=== PATIENT | male | born 1960 | race Caucasian/White ===

== ENCOUNTER 2017-03-28 13:01 | Outpatient (CLI) | payer OTHER ==
[2017-03-28 13:23] VITALS: BP 110/62; PULSE 56; RESP 17; TEMP 99
[2017-03-28] MEDS ORDERED: NS 100 ML BAG (MINI-BAG) IV ONE (14:20)
== END 2017-03-28 15:07 | disposition home or self-care (01) ==
LOC: FOBOP 13:01
PROVIDERS: ATTEND Internal Medicine Hematology & Oncology
PROC: [UNRECOGNIZED PROCEDURE] (principal; 2017-03-28)
DX: C91.10 Chronic lymphocytic leukemia of B-cell type not having achieved remission (principal)
CPT/HCPCS: 36430; P9035

== ENCOUNTER 2017-03-30 11:19 | Outpatient (CLI) | payer OTHER ==
[2017-03-30] MEDS ORDERED: ACETAMINOPHEN 500 MG TAB ONE (13:09)
[2017-03-30] MEDS ORDERED: ACETAMINOPHEN 500 MG TAB PO ONE (14:00)
--- NOTE | 2017-03-30 15:24 | GCON ---
[f rep st] CONSULTATION OBSERVATION NOTE REASON FOR CONSULTATION: I was asked by the nurse to evaluate the patient because he had a fever up to 101 during a transfusion. 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 When I examine him, he really does not have any significant symptoms. No rigors, chills. His mentation is normal. His temp is back down to normal. 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 REVIEW OF SYSTEMS: No localizing symptoms. PHYSICAL EXAM: GENERAL: The clinical exam is unremarkable. He looks healthy. He is alert, orient ed, and completely intact. NECK: There is no cervical adenopathy. LUNGS: Clear to P and A. CV: S1 normal, S2 normally split. No S3, S4, or murmur. ABDOMEN: The patient has a soft, nontender ab domen. EXTREMITIES: There is no extremity edema. There is no perianal tenderness. LABORATORY DATA: Reveals that the patient has a white count of 104,000, hemoglobin 7, and the plate let count was 9000. CLINICAL IMPRESSION: A low-grade temperature, which is resolved. I think we can go ahead and just continue to transfuse and monitor his temperature. He has a followup on Sunday for another CBC and follow up thereafter with Dr. Carmen Gomez. /[id number]/MODL
== END 2017-03-30 15:02 | disposition home or self-care (01) ==
LOC: FOBOP 11:19
PROVIDERS: ATTEND Internal Medicine Hematology & Oncology
PROC: 30233N1 Transfusion of Nonautologous Red Blood Cells into Peripheral Vein, Percutaneous Approach (ICD-10-PCS; principal; 2017-03-30)
PROC: 30233R1 Transfusion of Nonautologous Platelets into Peripheral Vein, Percutaneous Approach (ICD-10-PCS; principal; 2017-03-30)
DX: C91.10 Chronic lymphocytic leukemia of B-cell type not having achieved remission (principal)
CPT/HCPCS: 36430; P9016; P9040; Q9988

== ENCOUNTER 2017-04-03 14:03 | Outpatient (CLI) | payer OTHER ==
[2017-04-01 11:08] LABS: BCH VENIPUNCTURE CHGD
[2017-04-01 11:11] LABS: ADD DIFF? YES; ADD MORPH? NO; ADD SCAN? YES; ATYPICAL LYMPHOCYTE FLAG 60 (0-99); FRAGMENT RBC FLAG 0 (0-99); HEMATOCRIT 23.5 % (40.0-51.0); HEMOGLOBIN 7.6 g/dL (13.7-17.5); LEFT SHIFT FLG 80 (0-99); LIPEMIA HEMOLYSIS FLAG 80 (0-99); MEAN CELL HEMOGLOBIN 32.1 pg (27.9-34.1); MEAN CELL HEMOGLOBIN CONCENTR. 32.3 g/dL (32.4-36.7); MEAN CELL VOLUME 99.2 fL (81.5-99.8); MEAN PLATELET VOLUME 10.5 fL (8.7-11.7); PLATELET CLUMPS FLAG 60 (0-99); RED BLOOD CELL COUNT 2.37 10^6/uL (4.40-6.38); RED CELL DISTRIBUTION WIDTH 15.7 % (11.5-15.2)
[2017-04-01 11:14] LABS: PLATELET COUNT 10 10^3/uL (150-400)
[2017-04-01 11:24] LABS: ALANINE AMINOTRANSFERASE 73 IU/L (21-72); ALBUMIN 4.5 g/dL (3.5-5.0); ALKALINE PHOSPHATASE 136 IU/L (38-126); ANION GAP 19 mEq/L (8-16); ASPARTATE AMINOTRANSFERASE 79 IU/L (17-59); BILIRUBIN,TOTAL 0.9 mg/dL (0.1-1.4); CALCIUM 10.2 mg/dL (8.5-10.4); CARBON DIOXIDE 20 mEq/l (22-31); CHLORIDE 102 mEq/L (97-110); CREATININE 1.1 mg/dL (0.7-1.3); GLOMERULAR FILTRATION RATE > 60; GLUCOSE 89 mg/dL (70-100); POTASSIUM 3.9 mEq/L (3.5-5.2); SODIUM 141 mEq/L (134-144); TOTAL PROTEIN 7.4 g/dL (6.3-8.2)
[2017-04-01 11:52] LABS: HYPOCHROMIA 1+; PLATELET ESTIMATE DECREASED (ADEQ)
[2017-04-01 12:06] LABS: EXTRA TUBES TO HOLD EXTRA TUBES ON FILE
[2017-04-03] MEDS ORDERED: ACETAMINOPHEN 325 MG TAB PO ONE (14:45)
[2017-04-03 18:10] VITALS: BP 110/70; PULSE 72; RESP 18; TEMP 99.4
== END 2017-04-03 18:00 | disposition home or self-care (01) ==
LOC: FOBOP 14:03
PROVIDERS: ATTEND Internal Medicine Hematology & Oncology
PROC: 30243R1 Transfusion of Nonautologous Platelets into Central Vein, Percutaneous Approach (ICD-10-PCS; principal; 2017-04-03)
PROC: 30243N1 Transfusion of Nonautologous Red Blood Cells into Central Vein, Percutaneous Approach (ICD-10-PCS; principal; 2017-04-03)
DX: C91.10 Chronic lymphocytic leukemia of B-cell type not having achieved remission (principal)
CPT/HCPCS: P9016; P9037; P9040; 99001-90

== ENCOUNTER → 2017-04-06 | Outpatient (CLI) | payer OTHER ==
[~2017-04-06] MED LIST: ACETAMINOPHEN 325 MG TAB PO ONE
== END ==
LOC: FOBOP 16:08
PROVIDERS: ATTEND Internal Medicine Hematology & Oncology
PROC: 30233R1 Transfusion of Nonautologous Platelets into Peripheral Vein, Percutaneous Approach (ICD-10-PCS; principal; 2017-04-06)
DX: C91.10 Chronic lymphocytic leukemia of B-cell type not having achieved remission (principal)
CPT/HCPCS: 36430; Q9988

== ENCOUNTER → 2017-04-11 | Outpatient (CLI) | payer OTHER ==
[~2017-04-11] MED LIST changes: +diphenhydrAMINE 25 MG CAP PO ONE
[2017-04-11 12:06] LABS: ABSOLUTE IMMATURE GRANULOCYTES 0.05 10^3/uL (0.00-0.10); ABSOLUTE NRBC COUNT 0.02 10^3/uL (0-0.01); ADD DIFF? NO; ATYPICAL LYMPHOCYTE FLAG 70 (0-99); FRAGMENT RBC FLAG 0 (0-99); HEMATOCRIT 19.2 % (40.0-51.0); LEFT SHIFT FLG 0 (0-99); LIPEMIA HEMOLYSIS FLAG 80 (0-99); MEAN CELL HEMOGLOBIN 32.5 pg (27.9-34.1); MEAN CELL HEMOGLOBIN CONCENTR. 32.8 g/dL (32.4-36.7); MEAN PLATELET VOLUME 9.8 fL (8.7-11.7); PLATELET CLUMPS FLAG 70 (0-99); RED BLOOD CELL COUNT 1.94 10^6/uL (4.40-6.38); RED CELL DISTRIBUTION WIDTH 15.4 % (11.5-15.2)
[2017-04-11 12:09] LABS: HEMOGLOBIN 6.3 g/dL (13.7-17.5); PLATELET COUNT 19 10^3/uL (150-400)
[2017-04-11 12:10] LABS: ADD MORPH? NO; ADD SCAN? NO
== END ==
LOC: FOBOP 08:49
PROVIDERS: ATTEND Internal Medicine Hematology & Oncology
PROC: 30233R1 Transfusion of Nonautologous Platelets into Peripheral Vein, Percutaneous Approach (ICD-10-PCS; principal; 2017-04-11)
DX: C91.10 Chronic lymphocytic leukemia of B-cell type not having achieved remission (principal)

== ENCOUNTER 2017-04-12 11:19 | Outpatient (CLI) | payer OTHER ==
[2017-04-12] MEDS ORDERED: ACETAMINOPHEN 325 MG TAB PO ONE (11:45)
== END 2017-04-12 16:20 | disposition home or self-care (01) ==
LOC: F1NOP 11:19
PROVIDERS: ATTEND Internal Medicine Hematology & Oncology
PROC: 30233N1 Transfusion of Nonautologous Red Blood Cells into Peripheral Vein, Percutaneous Approach (ICD-10-PCS; principal; 2017-04-12)
DX: C91.10 Chronic lymphocytic leukemia of B-cell type not having achieved remission (principal)
CPT/HCPCS: 36430; P9040

== ENCOUNTER 2017-04-18 10:50 | Outpatient (CLI) | payer OTHER ==
[2017-04-18] MEDS ORDERED: ACETAMINOPHEN 325 MG TAB PO ONE (11:15)
[2017-04-18 17:37] LABS: ABSOLUTE IMMATURE GRANULOCYTES 0.04 10^3/uL (0.00-0.10); ADD DIFF? NO; ATYPICAL LYMPHOCYTE FLAG 30 (0-99); FRAGMENT RBC FLAG 0 (0-99); HEMATOCRIT 22.6 % (40.0-51.0); LEFT SHIFT FLG 10 (0-99); LIPEMIA HEMOLYSIS FLAG 70 (0-99); MEAN CELL HEMOGLOBIN 30.7 pg (27.9-34.1); MEAN CELL HEMOGLOBIN CONCENTR. 29.6 g/dL (32.4-36.7); MEAN CELL VOLUME 103.7 fL (81.5-99.8); RED BLOOD CELL COUNT 2.18 10^6/uL (4.40-6.38); RED CELL DISTRIBUTION WIDTH 15.7 % (11.5-15.2)
[2017-04-18 17:42] LABS: HEMOGLOBIN 6.7 g/dL (13.7-17.5); PLATELET CLUMPS FLAG 120 (0-99); PLATELET COUNT 26 10^3/uL (150-400)
[2017-04-18 17:43] LABS: ADD MORPH? NO; ADD SCAN? NO
== END 2017-04-18 17:15 | disposition home or self-care (01) ==
LOC: FOBOP 10:50
PROVIDERS: ATTEND Internal Medicine Hematology & Oncology
PROC: 30233R1 Transfusion of Nonautologous Platelets into Peripheral Vein, Percutaneous Approach (ICD-10-PCS; principal; 2017-04-18)
PROC: 30233N1 Transfusion of Nonautologous Red Blood Cells into Peripheral Vein, Percutaneous Approach (ICD-10-PCS; principal; 2017-04-18)
DX: C91.10 Chronic lymphocytic leukemia of B-cell type not having achieved remission (principal)
CPT/HCPCS: 36430; P9016; P9040; Q9988

== ENCOUNTER → 2017-04-18 | Day surgery (SDC) | payer OTHER | END | disposition home or self-care (01) | LOC: FIMAGING 09:30 | PROVIDERS: ATTEND Nurse Practitioner | PROC: 02HV33Z Insertion of Infusion Device into Superior Vena Cava, Percutaneous Approach (ICD-10-PCS; principal; 2017-04-18) | DX: Z45.2 Encounter for adjustment and management of vascular access device (principal); C91.10 Chronic lymphocytic leukemia of B-cell type not having achieved remission | CPT/HCPCS: 36569; 77001; C1751 ==

== ENCOUNTER 2017-04-20 12:24 | Outpatient (CLI) | payer OTHER ==
[2017-04-20] MEDS ORDERED: diphenhydrAMINE 25 MG CAP PO ONE (12:45)
[2017-04-20] MEDS ORDERED: ACETAMINOPHEN 325 MG TAB PO ONE (12:45)
[2017-04-20 17:42] LABS: ABSOLUTE IMMATURE GRANULOCYTES 0.05 10^3/uL (0.00-0.10); ADD DIFF? NO; ADD MORPH? NO; ADD SCAN? YES; ATYPICAL LYMPHOCYTE FLAG 20 (0-99); FRAGMENT RBC FLAG 0 (0-99); HEMATOCRIT 23.9 % (40.0-51.0); HEMOGLOBIN 7.1 g/dL (13.7-17.5); LEFT SHIFT FLG 50 (0-99); LIPEMIA HEMOLYSIS FLAG 70 (0-99); MEAN CELL HEMOGLOBIN 30.2 pg (27.9-34.1); MEAN CELL HEMOGLOBIN CONCENTR. 29.7 g/dL (32.4-36.7); MEAN CELL VOLUME 101.7 fL (81.5-99.8); MEAN PLATELET VOLUME 10.7 fL (8.7-11.7); PLATELET CLUMPS FLAG 60 (0-99); RED BLOOD CELL COUNT 2.35 10^6/uL (4.40-6.38); RED CELL DISTRIBUTION WIDTH 17.4 % (11.5-15.2)
[2017-04-20 17:44] LABS: PLATELET COUNT 24 10^3/uL (150-400)
[2017-04-20 19:27] LABS: SCAN POSITIVE
[2017-04-20 19:33] LABS: PLATELET ESTIMATE DECREASED (ADEQ)
== END 2017-04-20 17:27 | disposition home health service (06) ==
LOC: F1NOP 12:24
PROVIDERS: ATTEND Internal Medicine Hematology & Oncology
PROC: 30233R1 Transfusion of Nonautologous Platelets into Peripheral Vein, Percutaneous Approach (ICD-10-PCS; principal; 2017-04-20)
PROC: 30233N1 Transfusion of Nonautologous Red Blood Cells into Peripheral Vein, Percutaneous Approach (ICD-10-PCS; principal; 2017-04-20)
DX: C91.10 Chronic lymphocytic leukemia of B-cell type not having achieved remission (principal)
CPT/HCPCS: P9016; P9037; P9040; J1642

== ENCOUNTER 2017-04-23 13:30 | Outpatient (CLI) | payer OTHER ==
[2017-04-23] MEDS ORDERED: ACETAMINOPHEN 325 MG TAB PO ONE (14:00)
[2017-04-23] MEDS ORDERED: diphenhydrAMINE 25 MG CAP PO ONE (14:00)
[2017-04-23 14:04] VITALS: PULSE 55; RESP 16; O2SAT 96
[2017-04-23 14:31] VITALS: BP 104/60; TEMP 99.7
== END 2017-04-23 15:10 | disposition home or self-care (01) ==
LOC: FOBOP 13:30
PROVIDERS: ATTEND Internal Medicine Hematology & Oncology
PROC: [UNRECOGNIZED PROCEDURE] (principal; 2017-04-23)
DX: C91.10 Chronic lymphocytic leukemia of B-cell type not having achieved remission (principal); D63.0 Anemia in neoplastic disease; D69.6 Thrombocytopenia, unspecified; D80.1 Nonfamilial hypogammaglobulinemia; E78.00 Pure hypercholesterolemia, unspecified; D70.9 Neutropenia, unspecified; J06.9 Acute upper respiratory infection, unspecified; G95.20 Unspecified cord compression
CPT/HCPCS: J1642

== ENCOUNTER 2017-04-27 11:47 | Outpatient (CLI) | payer OTHER ==
[2017-04-27] MEDS ORDERED: ACETAMINOPHEN 325 MG TAB PO ONE (12:15)
[2017-04-27 12:23] VITALS: BP 116/66; PULSE 62; RESP 16; TEMP 99.7; O2SAT 97
== END 2017-04-27 17:31 | disposition home or self-care (01) ==
LOC: FOBOP 11:47
PROVIDERS: ATTEND Internal Medicine Hematology & Oncology
PROC: 30233R1 Transfusion of Nonautologous Platelets into Peripheral Vein, Percutaneous Approach (ICD-10-PCS; principal; 2017-04-27)
PROC: 30233N1 Transfusion of Nonautologous Red Blood Cells into Peripheral Vein, Percutaneous Approach (ICD-10-PCS; principal; 2017-04-27)
DX: D63.0 Anemia in neoplastic disease (principal); C91.10 Chronic lymphocytic leukemia of B-cell type not having achieved remission; D69.59 Other secondary thrombocytopenia
CPT/HCPCS: 36430; P9016; P9037; P9040; 99001-90; J1642

== ENCOUNTER → 2017-05-02 | Outpatient (CLI) | payer OTHER ==
[~2017-05-02] MED LIST changes: -diphenhydrAMINE 25 MG CAP PO ONE
== END ==
LOC: FOBOP 10:37
PROVIDERS: ATTEND Internal Medicine Hematology & Oncology
PROC: 30233R1 Transfusion of Nonautologous Platelets into Peripheral Vein, Percutaneous Approach (ICD-10-PCS; principal; 2017-05-02)
DX: C91.10 Chronic lymphocytic leukemia of B-cell type not having achieved remission (principal)
CPT/HCPCS: 36430; P9016; P9037; P9040; 99001-90

== ENCOUNTER → 2017-05-04 | Outpatient (CLI) | payer OTHER ==
[~2017-05-04] MED LIST changes: +diphenhydrAMINE 25 MG CAP PO ONE
[2017-05-04 19:13] LABS: % IMMATURE GRANULYOCYTES 0.1 % (0.0-1.1); ABSOLUTE IMMATURE GRANULOCYTES 0.14 10^3/uL (0.00-0.10); ABSOLUTE NRBC COUNT 0.02 10^3/uL (0-0.01); ADD DIFF? NO; ADD MORPH? YES; ADD SCAN? YES; ATYPICAL LYMPHOCYTE FLAG 0 (0-99); FRAGMENT RBC FLAG 20 (0-99); HEMATOCRIT 22.3 % (40.0-51.0); LEFT SHIFT FLG 0 (0-99); LIPEMIA HEMOLYSIS FLAG 70 (0-99); MEAN CELL HEMOGLOBIN 28.3 pg (27.9-34.1); MEAN CELL HEMOGLOBIN CONCENTR. 29.1 g/dL (32.4-36.7); MEAN PLATELET VOLUME 10.9 fL (8.7-11.7); PLATELET CLUMPS FLAG 0 (0-99); RED CELL DISTRIBUTION WIDTH 17.9 % (11.5-15.2)
[2017-05-04 19:14] LABS: HEMOGLOBIN 6.5 g/dL (13.7-17.5)
[2017-05-04 19:16] LABS: PLATELET COUNT 25 10^3/uL (150-400)
[2017-05-04 20:02] LABS: SCAN POSITIVE
[2017-05-04 20:44] LABS: HYPOCHROMIA 2+; MICROCYTES 1+; PLATELET ESTIMATE DECREASED (ADEQ)
== END ==
LOC: FOBOP 16:28
PROVIDERS: ATTEND Internal Medicine Hematology & Oncology
PROC: 30233R1 Transfusion of Nonautologous Platelets into Peripheral Vein, Percutaneous Approach (ICD-10-PCS; principal; 2017-05-04)
PROC: 30233N1 Transfusion of Nonautologous Red Blood Cells into Peripheral Vein, Percutaneous Approach (ICD-10-PCS; principal; 2017-05-04)
DX: C91.10 Chronic lymphocytic leukemia of B-cell type not having achieved remission (principal); D63.0 Anemia in neoplastic disease; D64.81 Anemia due to antineoplastic chemotherapy; D80.1 Nonfamilial hypogammaglobulinemia; D69.6 Thrombocytopenia, unspecified
CPT/HCPCS: 36430; P9016; P9040; Q9988

== ENCOUNTER 2017-05-07 11:38 | Outpatient (CLI) | payer OTHER ==
[2017-05-07] MEDS ORDERED: ACETAMINOPHEN 325 MG TAB ONE (12:13)
[2017-05-07] MEDS ORDERED: ACETAMINOPHEN 325 MG TAB PO ONE (12:30)
[2017-05-07] MEDS ORDERED: diphenhydrAMINE 25 MG CAP PO ONE (12:30)
== END 2017-05-07 18:40 | disposition home or self-care (01) ==
LOC: FOBOP 11:38
PROVIDERS: ATTEND Internal Medicine Hematology & Oncology
PROC: 30233R1 Transfusion of Nonautologous Platelets into Peripheral Vein, Percutaneous Approach (ICD-10-PCS; principal; 2017-05-07)
DX: C91.10 Chronic lymphocytic leukemia of B-cell type not having achieved remission (principal)
CPT/HCPCS: 36430; Q9988

== ENCOUNTER → 2017-05-11 | Outpatient (CLI) | payer OTHER ==
[2017-05-11 15:28] LABS: % IMMATURE GRANULYOCYTES 0.1 % (0.0-1.1); ABSOLUTE IMMATURE GRANULOCYTES 0.12 10^3/uL (0.00-0.10); ADD DIFF? NO; ADD MORPH? YES; ADD SCAN? YES; ATYPICAL LYMPHOCYTE FLAG 0 (0-99); FRAGMENT RBC FLAG 0 (0-99); HEMATOCRIT 22.8 % (40.0-51.0); LEFT SHIFT FLG 0 (0-99); LIPEMIA HEMOLYSIS FLAG 70 (0-99); MEAN CELL HEMOGLOBIN 28.3 pg (27.9-34.1); MEAN CELL VOLUME 99.1 fL (81.5-99.8); MEAN PLATELET VOLUME 10.6 fL (8.7-11.7); PLATELET CLUMPS FLAG 0 (0-99); RED CELL DISTRIBUTION WIDTH 17.2 % (11.5-15.2)
[2017-05-11 15:29] LABS: HEMOGLOBIN 6.5 g/dL (13.7-17.5); MEAN CELL HEMOGLOBIN CONCENTR. 28.5 g/dL (32.4-36.7); PLATELET COUNT 34 10^3/uL (150-400)
[2017-05-11 16:26] LABS: SCAN POSITIVE
[2017-05-11 16:54] LABS: HYPOCHROMIA 1+; MICROCYTES 2+; PLATELET ESTIMATE DECREASED (ADEQ); SCHISTOCYTES 1+; SMUDGE CELLS 3+
[2017-05-11 16:55] LABS: ELLIPTOCYTES 1+
== END ==
LOC: FOBOP 13:25
PROVIDERS: ATTEND Internal Medicine Hematology & Oncology
PROC: 30233R1 Transfusion of Nonautologous Platelets into Peripheral Vein, Percutaneous Approach (ICD-10-PCS; principal; 2017-05-11)
DX: C91.10 Chronic lymphocytic leukemia of B-cell type not having achieved remission (principal)
CPT/HCPCS: 36430; P9037

== ENCOUNTER 2017-05-16 13:13 | Outpatient (CLI) | payer OTHER | END 2017-05-16 14:10 | disposition home or self-care (01) | LOC: FOBOP 13:13 | PROVIDERS: ATTEND Internal Medicine Hematology & Oncology | PROC: 30233R1 Transfusion of Nonautologous Platelets into Peripheral Vein, Percutaneous Approach (ICD-10-PCS; principal; 2017-05-16) | DX: C91.10 Chronic lymphocytic leukemia of B-cell type not having achieved remission (principal); D69.6 Thrombocytopenia, unspecified; D80.1 Nonfamilial hypogammaglobulinemia; D63.0 Anemia in neoplastic disease; D64.81 Anemia due to antineoplastic chemotherapy; E78.00 Pure hypercholesterolemia, unspecified; D70.9 Neutropenia, unspecified | CPT/HCPCS: 36430; P9037 ==

== ENCOUNTER 2017-05-18 10:21 | Outpatient (CLI) | payer OTHER ==
[2017-05-18 11:49] VITALS: BP 104/62; PULSE 58; RESP 16; TEMP 99.7
[2017-05-18] MEDS ORDERED: ACETAMINOPHEN 325 MG TAB PO ONE (12:30)
== END 2017-05-18 14:00 | disposition home or self-care (01) ==
LOC: FOBOP 10:21
PROVIDERS: ATTEND Internal Medicine Hematology & Oncology
PROC: 30233N1 Transfusion of Nonautologous Red Blood Cells into Peripheral Vein, Percutaneous Approach (ICD-10-PCS; principal; 2017-05-18)
DX: C91.10 Chronic lymphocytic leukemia of B-cell type not having achieved remission (principal); D63.0 Anemia in neoplastic disease; D69.6 Thrombocytopenia, unspecified; D80.1 Nonfamilial hypogammaglobulinemia; E78.00 Pure hypercholesterolemia, unspecified; D70.9 Neutropenia, unspecified
CPT/HCPCS: 36430; P9016; P9040

== ENCOUNTER 2017-05-21 16:31 | Outpatient (CLI) | payer OTHER | END 2017-05-21 18:10 | disposition home or self-care (01) | LOC: FOBOP 16:31 | PROVIDERS: ATTEND Internal Medicine Hematology & Oncology | PROC: 30233R1 Transfusion of Nonautologous Platelets into Peripheral Vein, Percutaneous Approach (ICD-10-PCS; principal; 2017-05-21) | DX: C91.10 Chronic lymphocytic leukemia of B-cell type not having achieved remission (principal); D63.0 Anemia in neoplastic disease; D69.6 Thrombocytopenia, unspecified; D80.1 Nonfamilial hypogammaglobulinemia; E78.00 Pure hypercholesterolemia, unspecified; D70.9 Neutropenia, unspecified ==

== ENCOUNTER 2017-05-24 09:41 | Outpatient (CLI) | payer OTHER | END 2017-05-24 14:47 | disposition home or self-care (01) | LOC: FOBOP 09:41 | PROVIDERS: ATTEND Internal Medicine Hematology & Oncology | PROC: 30233N1 Transfusion of Nonautologous Red Blood Cells into Peripheral Vein, Percutaneous Approach (ICD-10-PCS; principal; 2017-05-24) | DX: C91.10 Chronic lymphocytic leukemia of B-cell type not having achieved remission (principal); D63.0 Anemia in neoplastic disease; D69.6 Thrombocytopenia, unspecified; D80.1 Nonfamilial hypogammaglobulinemia; E78.00 Pure hypercholesterolemia, unspecified; D70.9 Neutropenia, unspecified | CPT/HCPCS: 36430; P9016; P9040 ==

== ENCOUNTER → 2017-05-28 | Day surgery (SDC) | payer OTHER | END | disposition home or self-care (01) | LOC: FIMAGING 13:17 | PROVIDERS: ATTEND Internal Medicine Hematology & Oncology | PROC: 05WY33Z Revision of Infusion Device in Upper Vein, Percutaneous Approach (ICD-10-PCS; principal; 2017-05-28) | DX: Z45.89 Encounter for adjustment and management of other implanted devices (principal); C95.90 Leukemia, unspecified not having achieved remission ==

== ENCOUNTER → 2017-05-31 | Outpatient (CLI) | payer OTHER ==
[~2017-05-31] MED LIST changes: -diphenhydrAMINE 25 MG CAP PO ONE
== END ==
LOC: FOBOP 14:53
PROVIDERS: ATTEND Internal Medicine Hematology & Oncology
PROC: 30233R1 Transfusion of Nonautologous Platelets into Peripheral Vein, Percutaneous Approach (ICD-10-PCS; principal; 2017-05-31)
DX: C91.10 Chronic lymphocytic leukemia of B-cell type not having achieved remission (principal); D64.81 Anemia due to antineoplastic chemotherapy; D69.6 Thrombocytopenia, unspecified; D80.1 Nonfamilial hypogammaglobulinemia; E78.00 Pure hypercholesterolemia, unspecified; D70.9 Neutropenia, unspecified
CPT/HCPCS: 36430; P9037

== ENCOUNTER → 2017-06-05 | Outpatient (CLI) | payer OTHER ==
[2017-06-05 09:36] VITALS: BP 120/68; PULSE 60; RESP 18; TEMP 98.1; O2SAT 96
== END ==
LOC: FOBOP 08:52
PROVIDERS: ATTEND Internal Medicine Hematology & Oncology
PROC: 30233N1 Transfusion of Nonautologous Red Blood Cells into Peripheral Vein, Percutaneous Approach (ICD-10-PCS; principal; 2017-06-05)
DX: C91.10 Chronic lymphocytic leukemia of B-cell type not having achieved remission (principal); D63.0 Anemia in neoplastic disease
CPT/HCPCS: 36430; P9016; P9037; P9040

== ENCOUNTER 2017-06-11 12:14 | Outpatient (CLI) | payer OTHER | END 2017-06-11 13:50 | disposition home or self-care (01) | LOC: FOBOP 12:14 | PROVIDERS: ATTEND Internal Medicine Hematology & Oncology | PROC: 30233R1 Transfusion of Nonautologous Platelets into Peripheral Vein, Percutaneous Approach (ICD-10-PCS; principal; 2017-06-11) | DX: C91.10 Chronic lymphocytic leukemia of B-cell type not having achieved remission (principal) | CPT/HCPCS: 36430; Q9988 ==

== ENCOUNTER 2017-06-18 11:38 | Outpatient (CLI) | payer OTHER ==
[2017-06-18 12:44] VITALS: RESP 20
[2017-06-18 16:39] VITALS: O2SAT 98
[2017-06-18 16:52] VITALS: PULSE 48
[2017-06-18 17:30] VITALS: BP 140/62; TEMP 98.9
== END 2017-06-18 17:30 | disposition home or self-care (01) ==
LOC: FOBOP 11:38
PROVIDERS: ATTEND Internal Medicine Hematology & Oncology
PROC: 30233N1 Transfusion of Nonautologous Red Blood Cells into Peripheral Vein, Percutaneous Approach (ICD-10-PCS; principal; 2017-06-18)
DX: D80.1 Nonfamilial hypogammaglobulinemia (principal); C91.10 Chronic lymphocytic leukemia of B-cell type not having achieved remission
CPT/HCPCS: 36430; P9016; P9037; P9040; 99001-90

== ENCOUNTER 2017-06-22 11:42 | Outpatient (CLI) | payer OTHER ==
[2017-06-22] MEDS ORDERED: ACETAMINOPHEN 325 MG TAB PO ONE (12:00)
== END 2017-06-22 13:18 | disposition home or self-care (01) ==
LOC: FOBOP 11:42
PROVIDERS: ATTEND Internal Medicine Hematology & Oncology
PROC: 30233R1 Transfusion of Nonautologous Platelets into Peripheral Vein, Percutaneous Approach (ICD-10-PCS; principal; 2017-06-22)
DX: C91.10 Chronic lymphocytic leukemia of B-cell type not having achieved remission (principal); D64.81 Anemia due to antineoplastic chemotherapy; D80.1 Nonfamilial hypogammaglobulinemia; D69.6 Thrombocytopenia, unspecified; E78.00 Pure hypercholesterolemia, unspecified; D70.9 Neutropenia, unspecified
CPT/HCPCS: 36430; P9037

== ENCOUNTER 2017-07-07 09:38 | Outpatient (CLI) | payer OTHER ==
[2017-07-07 10:20] VITALS: BP 120/64; PULSE 54; RESP 20; TEMP 99.5; O2SAT 97
== END 2017-07-07 14:10 | disposition home or self-care (01) ==
LOC: FOBOP 09:38
PROVIDERS: ATTEND Internal Medicine Hematology & Oncology
PROC: 30233N0 Transfusion of Autologous Red Blood Cells into Peripheral Vein, Percutaneous Approach (ICD-10-PCS; principal; 2017-07-07)
DX: C91.10 Chronic lymphocytic leukemia of B-cell type not having achieved remission (principal); D80.1 Nonfamilial hypogammaglobulinemia; D63.0 Anemia in neoplastic disease; D69.6 Thrombocytopenia, unspecified; E78.00 Pure hypercholesterolemia, unspecified; D70.9 Neutropenia, unspecified
CPT/HCPCS: 36430; P9016; P9040

== ENCOUNTER 2017-07-21 11:30 | Outpatient (CLI) | payer OTHER ==
[2017-07-21 11:46] VITALS: BP 102/52; PULSE 66; RESP 16; TEMP 98.7; O2SAT 96
== END 2017-07-21 13:55 | disposition home or self-care (01) ==
LOC: FOBOP 11:30
PROVIDERS: ATTEND Internal Medicine Hematology & Oncology
PROC: 30233R1 Transfusion of Nonautologous Platelets into Peripheral Vein, Percutaneous Approach (ICD-10-PCS; principal; 2017-07-21)
DX: C91.10 Chronic lymphocytic leukemia of B-cell type not having achieved remission (principal)
CPT/HCPCS: 36430; P9037

== ENCOUNTER 2017-07-25 20:37 | Outpatient (CLI) | payer OTHER ==
[2017-07-25 21:22] VITALS: BP 126/60; PULSE 72; RESP 18; TEMP 98.8
== END 2017-07-25 23:05 | disposition home or self-care (01) ==
LOC: FOBOP 20:37
PROVIDERS: ATTEND Internal Medicine Hematology & Oncology
PROC: 30233R1 Transfusion of Nonautologous Platelets into Peripheral Vein, Percutaneous Approach (ICD-10-PCS; principal; 2017-07-25)
DX: C91.10 Chronic lymphocytic leukemia of B-cell type not having achieved remission (principal); D70.2 Other drug-induced agranulocytosis; D64.81 Anemia due to antineoplastic chemotherapy; D80.1 Nonfamilial hypogammaglobulinemia
CPT/HCPCS: 36430; P9037

== ENCOUNTER → 2017-07-26 | Outpatient (CLI) | payer OTHER | LOC: FOBOP 11:38 | PROVIDERS: ATTEND Internal Medicine Hematology & Oncology | PROC: 30233N1 Transfusion of Nonautologous Red Blood Cells into Peripheral Vein, Percutaneous Approach (ICD-10-PCS; principal; 2017-07-26) | DX: C91.Z0 Other lymphoid leukemia not having achieved remission (principal); D64.81 Anemia due to antineoplastic chemotherapy | CPT/HCPCS: 36430; P9016; P9040 ==

== ENCOUNTER 2017-07-28 08:02 | Outpatient (CLI) | payer OTHER ==
[2017-07-28 09:54] LABS: PLATELET COUNT 13 10^3/uL (150-400)
== END 2017-07-28 09:44 | disposition home or self-care (01) ==
LOC: FOBOP 08:02
PROVIDERS: ATTEND Internal Medicine Hematology & Oncology
PROC: 30233R1 Transfusion of Nonautologous Platelets into Peripheral Vein, Percutaneous Approach (ICD-10-PCS; principal; 2017-07-28)
DX: C91.10 Chronic lymphocytic leukemia of B-cell type not having achieved remission (principal); D64.81 Anemia due to antineoplastic chemotherapy; D70.9 Neutropenia, unspecified; D69.6 Thrombocytopenia, unspecified; D80.1 Nonfamilial hypogammaglobulinemia; E78.00 Pure hypercholesterolemia, unspecified
CPT/HCPCS: 36430; P9037; 99001-90

== ENCOUNTER 2017-07-31 15:18 | Outpatient (CLI) | payer OTHER ==
[2017-07-31] MEDS ORDERED: ACETAMINOPHEN 325 MG TAB PO ONE (16:00)
== END 2017-07-31 17:16 | disposition home or self-care (01) ==
LOC: F1NOP 15:18
PROVIDERS: ATTEND Internal Medicine Hematology & Oncology
PROC: 30233R1 Transfusion of Nonautologous Platelets into Peripheral Vein, Percutaneous Approach (ICD-10-PCS; principal; 2017-07-31)
DX: C91.10 Chronic lymphocytic leukemia of B-cell type not having achieved remission (principal)
CPT/HCPCS: P9073

== ENCOUNTER → 2017-08-03 | Outpatient (CLI) | payer OTHER | LOC: FOBOP 15:55 | PROVIDERS: ATTEND Internal Medicine Hematology & Oncology | PROC: 30233R1 Transfusion of Nonautologous Platelets into Peripheral Vein, Percutaneous Approach (ICD-10-PCS; principal; 2017-08-03) | DX: C91.90 Lymphoid leukemia, unspecified not having achieved remission (principal) | CPT/HCPCS: 36430; P9037 ==

== ENCOUNTER → 2017-08-06 | Outpatient (CLI) | payer OTHER | LOC: FOBOP 12:31 | PROVIDERS: ATTEND Internal Medicine Hematology & Oncology | PROC: 30233N1 Transfusion of Nonautologous Red Blood Cells into Peripheral Vein, Percutaneous Approach (ICD-10-PCS; principal; 2017-08-06) | PROC: 30233R1 Transfusion of Nonautologous Platelets into Peripheral Vein, Percutaneous Approach (ICD-10-PCS; principal; 2017-08-06) | DX: C91.90 Lymphoid leukemia, unspecified not having achieved remission (principal); D69.6 Thrombocytopenia, unspecified | CPT/HCPCS: 36430; P9016; P9040; P9073 ==

== ENCOUNTER → 2017-08-10 | Outpatient (CLI) | payer OTHER ==
[2017-08-10 18:27] LABS: PLATELET COUNT 15 10^3/uL (150-400)
== END ==
LOC: FOBOP 13:38
PROVIDERS: ATTEND Internal Medicine Hematology & Oncology
PROC: 30233N1 Transfusion of Nonautologous Red Blood Cells into Peripheral Vein, Percutaneous Approach (ICD-10-PCS; principal; 2017-08-10)
DX: C91.10 Chronic lymphocytic leukemia of B-cell type not having achieved remission (principal); D69.6 Thrombocytopenia, unspecified; D70.9 Neutropenia, unspecified; D64.81 Anemia due to antineoplastic chemotherapy; E78.00 Pure hypercholesterolemia, unspecified
CPT/HCPCS: 36430; P9016; P9040; P9073

== ENCOUNTER 2017-08-15 14:44 | Outpatient (CLI) | payer OTHER ==
[2017-08-15 21:05] LABS: PLATELET COUNT 15 10^3/uL (150-400)
== END 2017-08-15 20:30 | disposition home or self-care (01) ==
LOC: FOBOP 14:44
PROVIDERS: ATTEND Internal Medicine Hematology & Oncology
PROC: 30233R1 Transfusion of Nonautologous Platelets into Peripheral Vein, Percutaneous Approach (ICD-10-PCS; principal; 2017-08-15)
DX: D64.81 Anemia due to antineoplastic chemotherapy (principal); C91.10 Chronic lymphocytic leukemia of B-cell type not having achieved remission; Z79.899 Other long term (current) drug therapy
CPT/HCPCS: 36430; P9016; P9037; P9040; 99001-90

== ENCOUNTER 2017-08-18 09:20 | Outpatient (CLI) | payer OTHER | END 2017-08-18 11:11 | disposition home or self-care (01) | LOC: FOBOP 09:20 | PROVIDERS: ATTEND Internal Medicine Hematology & Oncology | PROC: 30233R1 Transfusion of Nonautologous Platelets into Peripheral Vein, Percutaneous Approach (ICD-10-PCS; principal; 2017-08-18) | DX: C91.10 Chronic lymphocytic leukemia of B-cell type not having achieved remission (principal) | CPT/HCPCS: 36430; P9073 ==

== ENCOUNTER 2017-08-21 11:28 | Outpatient (CLI) | payer OTHER ==
[2017-08-21 17:22] LABS: PLATELET COUNT 19 10^3/uL (150-400)
== END 2017-08-21 17:10 | disposition home or self-care (01) ==
LOC: FOBOP 11:28
PROVIDERS: ATTEND Internal Medicine Hematology & Oncology
PROC: 30233R1 Transfusion of Nonautologous Platelets into Peripheral Vein, Percutaneous Approach (ICD-10-PCS; principal; 2017-08-21)
PROC: 30233N1 Transfusion of Nonautologous Red Blood Cells into Peripheral Vein, Percutaneous Approach (ICD-10-PCS; principal; 2017-08-21)
DX: C91.10 Chronic lymphocytic leukemia of B-cell type not having achieved remission (principal)
CPT/HCPCS: 36430; P9016; P9037; P9040

== ENCOUNTER → 2017-08-24 | Outpatient (CLI) | payer OTHER | LOC: FOBOP 11:23 | PROVIDERS: ATTEND Internal Medicine Hematology & Oncology | PROC: 30233N1 Transfusion of Nonautologous Red Blood Cells into Peripheral Vein, Percutaneous Approach (ICD-10-PCS; principal; 2017-08-24) | DX: C91.10 Chronic lymphocytic leukemia of B-cell type not having achieved remission (principal) | CPT/HCPCS: 36430; P9016; P9037; P9040; J1642 ==

== ENCOUNTER 2017-08-28 08:44 | Outpatient (CLI) | payer OTHER ==
[2017-08-28 09:13] VITALS: BP 100/40; PULSE 80; RESP 14; TEMP 99.1
== END 2017-08-28 14:05 | disposition home or self-care (01) ==
LOC: FOBOP 08:44
PROVIDERS: ATTEND Internal Medicine Hematology & Oncology
PROC: 30233N1 Transfusion of Nonautologous Red Blood Cells into Peripheral Vein, Percutaneous Approach (ICD-10-PCS; principal; 2017-08-28)
PROC: 30233R1 Transfusion of Nonautologous Platelets into Peripheral Vein, Percutaneous Approach (ICD-10-PCS; principal; 2017-08-28)
DX: C91.10 Chronic lymphocytic leukemia of B-cell type not having achieved remission (principal)
CPT/HCPCS: 36430; P9016; P9037; P9040

== ENCOUNTER 2017-08-30 12:47 | Outpatient (CLI) | payer OTHER | END 2017-08-30 14:15 | disposition home or self-care (01) | LOC: FOBOP 12:47 | PROVIDERS: ATTEND Internal Medicine Hematology & Oncology | PROC: 30233R1 Transfusion of Nonautologous Platelets into Peripheral Vein, Percutaneous Approach (ICD-10-PCS; principal; 2017-08-30) | DX: C91.10 Chronic lymphocytic leukemia of B-cell type not having achieved remission (principal) | CPT/HCPCS: 36430; P9037 ==

== ENCOUNTER 2017-09-01 09:21 | Outpatient (CLI) | payer OTHER ==
[2017-09-01 12:48] VITALS: PULSE 56
[2017-09-01 12:49] VITALS: BP 100/56; RESP 22; TEMP 99; O2SAT 98
== END 2017-09-01 11:35 | disposition home or self-care (01) ==
LOC: FOBOP 09:21
PROVIDERS: ATTEND Internal Medicine Hematology & Oncology
PROC: 30233R1 Transfusion of Nonautologous Platelets into Peripheral Vein, Percutaneous Approach (ICD-10-PCS; principal; 2017-09-01)
DX: C91.10 Chronic lymphocytic leukemia of B-cell type not having achieved remission (principal)
CPT/HCPCS: 36430; P9037

== ENCOUNTER 2017-09-04 09:45 | Outpatient (CLI) | payer OTHER ==
[2017-09-04] MEDS ORDERED: ACETAMINOPHEN 325 MG TAB PO ONE (10:30)
== END 2017-09-04 15:08 | disposition home or self-care (01) ==
LOC: FOBOP 09:45
PROVIDERS: ATTEND Internal Medicine Hematology & Oncology
PROC: 30233N1 Transfusion of Nonautologous Red Blood Cells into Peripheral Vein, Percutaneous Approach (ICD-10-PCS; principal; 2017-09-04)
PROC: 30233R1 Transfusion of Nonautologous Platelets into Peripheral Vein, Percutaneous Approach (ICD-10-PCS; principal; 2017-09-04)
DX: C91.10 Chronic lymphocytic leukemia of B-cell type not having achieved remission (principal)
CPT/HCPCS: 36430; P9016; P9037; P9040

== ENCOUNTER → 2017-09-07 | Outpatient (CLI) | payer OTHER | LOC: FOBOP 11:32 | PROVIDERS: ATTEND Internal Medicine Hematology & Oncology | PROC: 30233N1 Transfusion of Nonautologous Red Blood Cells into Peripheral Vein, Percutaneous Approach (ICD-10-PCS; principal; 2017-09-07) | PROC: 30233R1 Transfusion of Nonautologous Platelets into Peripheral Vein, Percutaneous Approach (ICD-10-PCS; principal; 2017-09-07) | DX: C91.10 Chronic lymphocytic leukemia of B-cell type not having achieved remission (principal) | CPT/HCPCS: 36430; P9016; P9037; P9040; 99001-90 ==

== ENCOUNTER → 2017-09-10 | Outpatient (CLI) | payer OTHER | LOC: FOBOP 11:28 | PROVIDERS: ATTEND Internal Medicine Hematology & Oncology | PROC: 30233R1 Transfusion of Nonautologous Platelets into Peripheral Vein, Percutaneous Approach (ICD-10-PCS; principal; 2017-09-10) | DX: C91.10 Chronic lymphocytic leukemia of B-cell type not having achieved remission (principal) | CPT/HCPCS: 36430; P9073 ==

== ENCOUNTER 2017-09-12 15:28 | Outpatient (CLI) | payer OTHER ==
[2017-09-12] MEDS ORDERED: ACETAMINOPHEN 325 MG TAB PO ONE (15:45)
== END 2017-09-12 20:50 | disposition home or self-care (01) ==
LOC: FOBOP 15:28
PROVIDERS: ATTEND Internal Medicine Hematology & Oncology
DX: C91.10 Chronic lymphocytic leukemia of B-cell type not having achieved remission (principal)
CPT/HCPCS: 36430; P9016; P9037; P9040

== ENCOUNTER 2017-09-14 13:09 | Outpatient (CLI) | payer OTHER | END 2017-09-14 14:55 | disposition home or self-care (01) | LOC: FOBOP 13:09 | PROVIDERS: ATTEND Internal Medicine Hematology & Oncology | PROC: 30233N1 Transfusion of Nonautologous Red Blood Cells into Peripheral Vein, Percutaneous Approach (ICD-10-PCS; principal; 2017-09-14) | DX: C91.10 Chronic lymphocytic leukemia of B-cell type not having achieved remission (principal); D69.6 Thrombocytopenia, unspecified; D70.9 Neutropenia, unspecified; D63.0 Anemia in neoplastic disease; D80.1 Nonfamilial hypogammaglobulinemia; E83.111 Hemochromatosis due to repeated red blood cell transfusions; E78.00 Pure hypercholesterolemia, unspecified | CPT/HCPCS: 36430; P9037 ==

== ENCOUNTER → 2017-09-17 | Outpatient (CLI) | payer OTHER ==
[2017-09-16 10:13] LABS: PLATELET COUNT 7 10^3/uL (150-400)
== END ==
LOC: FOBOP 10:10
PROVIDERS: ATTEND Internal Medicine Hematology & Oncology
DX: D69.6 Thrombocytopenia, unspecified (principal); C91.10 Chronic lymphocytic leukemia of B-cell type not having achieved remission
CPT/HCPCS: 36430; P9016; P9037; P9040

== ENCOUNTER 2017-09-20 10:02 | Outpatient (CLI) | payer OTHER | END 2017-09-20 11:00 | disposition home or self-care (01) | LOC: FOBOP 10:02 | PROVIDERS: ATTEND Internal Medicine Hematology & Oncology | PROC: 30233R1 Transfusion of Nonautologous Platelets into Peripheral Vein, Percutaneous Approach (ICD-10-PCS; principal; 2017-09-20) | DX: C91.10 Chronic lymphocytic leukemia of B-cell type not having achieved remission (principal); D69.6 Thrombocytopenia, unspecified | CPT/HCPCS: 36430; P9037; 99001-90 ==

== ENCOUNTER 2017-09-22 09:52 | Outpatient (CLI) | payer OTHER | END 2017-09-22 14:50 | disposition home or self-care (01) | LOC: FOBOP 09:52 | PROVIDERS: ATTEND Internal Medicine Hematology & Oncology | PROC: 30233R1 Transfusion of Nonautologous Platelets into Peripheral Vein, Percutaneous Approach (ICD-10-PCS; principal; 2017-09-22) | DX: C91.10 Chronic lymphocytic leukemia of B-cell type not having achieved remission (principal) | CPT/HCPCS: 36430; P9016; P9037; P9040 ==

== ENCOUNTER 2017-09-24 12:40 | Outpatient (CLI) | payer OTHER | END 2017-09-24 17:00 | disposition home or self-care (01) | LOC: FOBOP 12:40 | PROVIDERS: ATTEND Internal Medicine Hematology & Oncology | PROC: 30233N1 Transfusion of Nonautologous Red Blood Cells into Peripheral Vein, Percutaneous Approach (ICD-10-PCS; principal; 2017-09-24) | PROC: 30233R1 Transfusion of Nonautologous Platelets into Peripheral Vein, Percutaneous Approach (ICD-10-PCS; principal; 2017-09-24) | DX: C91.10 Chronic lymphocytic leukemia of B-cell type not having achieved remission (principal); D70.9 Neutropenia, unspecified; D63.0 Anemia in neoplastic disease; E83.111 Hemochromatosis due to repeated red blood cell transfusions; D69.6 Thrombocytopenia, unspecified; D80.1 Nonfamilial hypogammaglobulinemia; E78.00 Pure hypercholesterolemia, unspecified | CPT/HCPCS: 36430; P9016; P9040; P9073 ==

== ENCOUNTER 2017-09-27 09:15 | Outpatient (CLI) | payer OTHER ==
[2017-09-27 12:46] VITALS: TEMP 98.2
[2017-09-27 14:20] VITALS: BP 102/60; PULSE 58; RESP 16; O2SAT 90
== END 2017-09-27 14:30 | disposition home or self-care (01) ==
LOC: FOBOP 09:15
PROVIDERS: ATTEND Internal Medicine Hematology & Oncology
PROC: 30233N1 Transfusion of Nonautologous Red Blood Cells into Peripheral Vein, Percutaneous Approach (ICD-10-PCS; principal; 2017-09-27)
PROC: 30233R1 Transfusion of Nonautologous Platelets into Peripheral Vein, Percutaneous Approach (ICD-10-PCS; principal; 2017-09-27)
DX: C91.10 Chronic lymphocytic leukemia of B-cell type not having achieved remission (principal); D70.9 Neutropenia, unspecified; D63.0 Anemia in neoplastic disease; E83.111 Hemochromatosis due to repeated red blood cell transfusions; D69.6 Thrombocytopenia, unspecified; D80.1 Nonfamilial hypogammaglobulinemia; E78.00 Pure hypercholesterolemia, unspecified
CPT/HCPCS: 36430; P9016; P9037; P9040

== ENCOUNTER 2017-09-29 09:15 | Outpatient (CLI) | payer OTHER | END 2017-09-29 13:00 | disposition home or self-care (01) | LOC: FOBOP 09:15 | PROVIDERS: ATTEND Internal Medicine Hematology & Oncology | PROC: 30233R1 Transfusion of Nonautologous Platelets into Peripheral Vein, Percutaneous Approach (ICD-10-PCS; principal; 2017-09-29) | PROC: 30233N1 Transfusion of Nonautologous Red Blood Cells into Peripheral Vein, Percutaneous Approach (ICD-10-PCS; principal; 2017-09-29) | DX: C91.10 Chronic lymphocytic leukemia of B-cell type not having achieved remission (principal) | CPT/HCPCS: 36430; P9016; P9037; P9040; 99001-90 ==

== ENCOUNTER 2017-10-02 09:57 | Outpatient (CLI) | payer OTHER ==
[2017-10-02 16:05] LABS: PLATELET COUNT 24 10^3/uL (150-400)
== END 2017-10-02 16:14 | disposition home or self-care (01) ==
LOC: FOBOP 09:57
PROVIDERS: ATTEND Internal Medicine Hematology & Oncology
PROC: 30233N1 Transfusion of Nonautologous Red Blood Cells into Peripheral Vein, Percutaneous Approach (ICD-10-PCS; principal; 2017-10-02)
PROC: 30233R1 Transfusion of Nonautologous Platelets into Peripheral Vein, Percutaneous Approach (ICD-10-PCS; principal; 2017-10-02)
DX: C91.10 Chronic lymphocytic leukemia of B-cell type not having achieved remission (principal); D63.0 Anemia in neoplastic disease
CPT/HCPCS: 36430; P9016; P9037; P9040

== ENCOUNTER 2017-10-05 11:51 | Outpatient (CLI) | payer OTHER ==
[2017-10-05 13:07] VITALS: BP 116/72; PULSE 76; RESP 32; TEMP 99.1; O2SAT 94
[2017-10-05 18:34] LABS: PLATELET COUNT 20 10^3/uL (150-400)
== END 2017-10-05 18:44 | disposition home or self-care (01) ==
LOC: FOBOP 11:51
PROVIDERS: ATTEND Internal Medicine Hematology & Oncology
PROC: 30233N1 Transfusion of Nonautologous Red Blood Cells into Peripheral Vein, Percutaneous Approach (ICD-10-PCS; principal; 2017-10-05)
PROC: 30233R1 Transfusion of Nonautologous Platelets into Peripheral Vein, Percutaneous Approach (ICD-10-PCS; 2017-10-05)
DX: C91.10 Chronic lymphocytic leukemia of B-cell type not having achieved remission (principal)
CPT/HCPCS: 36430; P9016; P9040; P9073

== ENCOUNTER 2017-10-08 10:04 | Inpatient (IN) | payer OTHER ==
--- NOTE | 2017-10-08 10:20 | CPEKG ---
Heart Rate: 70 RR Interval: 857 P-R Interval: 156 QRSD Interval: 108 QT Interval: 392 QTC Interval: 423 P Roulette: 73 QRS Roulette: 10 T Wave Roulette: 4 EKG Severity - ABNORMAL ECG - EKG Impression: SINUS RHYTHM EKG Impression: LOW VOLTAGE IN FRONTAL LEADS Electronically Signed By: Navi Salcedo 08-Oct-2017 17:03:51
--- NOTE | 2017-10-08 10:34 | EDPHY ---
H & P Time Seen by Provider: 10/08/17 10:16 HPI/ROS: Chief complaint. Cardiac workup and blood transfusion HPI. 7-year-old male was emergency department from his oncologist's office with concern for atrial fibrillation as well as shortness of breath and low hemoglobin and platelets. The patient has a history of CLL and has requiring blood and platelet transfusions about 2 times per week. Last blood transfusion was 3 days ago. He also began anti oconnor laid Ng 8 last week. The patient does not have significant chest discomfort. He says occasionally he has an electric shock sensation in his anterior chest the last 1-2 seconds and seems to be worse when he is moving. He does however have T can shortness of breath that is worse with exertion such as getting up to go to the bathroom. No fever or cough. He is on prophylactic Levaquin, Bactrim DS, acyclovir. He does not his have a history of cardiac problems or previous in fibrillation ROS Constitutional. Generalized weakness Eyes. no problems with vision ENT. no sore throat, no nasal drainage Cardiovascular. Electric shock chest discomfort Respiratory. Shortness of breath without cough Abdominal. no abdominal pain, no nausea/vomiting, no diarrhea . no problems urinating MS. no calf pain/swelling, no neck/back pain, no joint pain Skin. no rash Lymph. no swollen glands Neuro. Difficulty walking secondary to weakness Past Medical/Surgical History: CLL, hypogammaglobulinemia, thrombocytopenia, back surgery Social History: , nonsmoker, no alcohol Smoking Status: Never smoked Physical Exam: General Appearance: Alert, pale well-developed male moderate distress vital signs show O2 saturation 88% on room air Eyes: Equal round active but pale. ENT, Mouth: Mucous membranes are moist. Respiratory: There are no retractions, lungs are clear to auscultation. Cardiovascular: Regular rate and rhythm. Gastrointestinal: Abdomen is soft and nontender, no masses, bowel sounds normal. Neurological: Awake and alert, sensory and motor exams grossly normal. Skin: Warm and dry, no rashes. Musculoskeletal: Neck is supple nontender. Extremities symmetrical, full range of motion. Psychiatric: Patient is oriented X 3, there is no agitation. Constitutional: Initial Vital Signs Temperature (C) 36.4 C 10/08/17 10:08 Heart Rate 74 10/08/17 10:08 Respiratory Rate 18 10/08/17 10:08 O2 Sat (%) 88 L 10/08/17 10:08 O2 Delivery Mode Room Air O2 (L/minute) 94 Allergies/Adverse Reactions: No Known Allergies Allergy (Verified 10/08/17 10:07) Home Medications: Medication Instructions Recorded Acyclovir [Zovirax 400 mg (*)] 400 mg PO BID 01/15/12 Sertraline HCl [Zoloft 100mg (*)] 200 mg PO HS 01/15/12 Pantoprazole Sodium [Protonix 40mg 40 mg PO HS 04/11/17 (*)] Allopurinol [Allopurinol 300 MG 300 mg PO DAILY 07/13/17 (RX)] QUEtiapine FUMARATE [Seroquel 100 200 mg PO HS 07/13/17 mg (*)] Sulfamethox/Tmp 800/160 mg 1 tab PO MWF 07/13/17 [Bactrim DS] Acetaminophen [Tylenol 325mg (*)] 650 mg PO Q4HRS PRN tab 07/15/17 Amoxicillin Trihydrate 2,000 mg PO DAILY PRN 10/08/17 [Amoxicillin] Posaconazole [Noxafil] 300 mg PO DAILY 10/08/17 Venetoclax [Venclexta] 100 mg PO DAILY 10/08/17 levOFLOXACIN [levAQUIN (*)] 500 mg PO DAILY 10/08/17 Medical Decision Making - Diagnostics EKG Interpretation: EKG TURP butted by me shows normal sinus rhythm normal interval and axis. QRS is normal other than low voltage in all leads. PVCs are present. PACs are present. Lateral T-wave flattening and slight inversion in leads V5 and V6. The rate is 70. This is changed from previous EKG in June 2017 Imaging Results: Imaging Impressions Chest X-Ray 10/08/17 11:01 Impression: Poor inspiration with bilateral pleural effusions. Bibasilar consolidation could possibly represent underlying pneumonia. Chest x-ray interpreted by me shows bilateral pleural effusions Procedures: IV normal saline, oxygen ED Course/Re-evaluation: I consulted discussed case with Dr. Gomez , oncology. I consulted and discussed the case with ,, hospitalist who agrees to the admission On re-evaluation patient remained stable. He and I discussed imaging and lab results. We discussed treatment plan including recommendation for admission further evaluation. He expresses understanding and agreement I have also discussed and consulted with Dr. And door ingram, Oncology who recommends admission Differential Diagnosis: Severe anemia and thrombocytopenia. There was concern for arrhythmia and atrial fibrillation. He is in normal sinus rhythm with PACs and PVCs. His troponin is negative. I do not think his chest pain is secondary to acute coronary syndrome. The patient has bilateral pleural effusions and hypoxia. Plan is admission, transfusion, thoracentesis - Data Points Laboratory Results: 10/08/17 10/08/17 11:10 10:25 Troponin I < 0.012 ng/mL ng/mL (0.000-0.034) Patient ABO/Rh O POSITIVE Antibody Screen POSITIVE Antibody Identification Negative Antibody Panel Enhanced Crossmatch See Detail Medications Given: Discontinued Medications Furosemide (Lasix Injection) 20 mg IVP ONCE ONE Stop: 10/08/17 15:38 Last Admin: 10/08/17 16:04 Dose: 20 mg Departure - Departure Disposition: [facility] Inpatient Acute Clinical Impression: Thrombocytopenia, CLL (chronic lymphocytic leukemia), Pleural effusion Anemia Qualifiers: Anemia type: unspecified type Qualified Code(s): D64.9 - Anemia, unspecified Condition: Fair
[2017-10-08] MEDS ORDERED: FUROSEMIDE 20 MG/2 ML VIAL IVP ONE (15:37)
--- NOTE | 2017-10-08 16:11 | GCON ---
[f rep st] CONSULTATION HEMATOLOGY CONSULTATION DATE OF CONSULTATION: 10/08/2017 REQUESTING PHYSICIANS: Dr. Chelsea Yousif. OUTPATIENT ONCOLOGIST: Carmen Gomez MD. REASON FOR CONSULTATION: Chronic lymphocytic leukemia, pancytopenia, congestive heart failure. HISTORY OF PRESENT ILLNESS: The patient is a 57-year-old man, well known to our clinic. He has a lo ngstanding history of chronic lymphocytic leukemia and has had multiple therapies. Most recently, he has been on the oral medication venetoclax. It has not had much effect, and he remains pancytopenic and requiring red blood cell and platelet transfusions 2-3 times per week. He is currently in the e valuation process for an allogeneic stem cell transplant. He has developed iron overload as a result of his chronic transfusion requirement, and was last week started on an oral iron chelator, Exjade. His ferritin was 3700 in July. He presented to clinic today with worsening dyspnea, which he said has been going on for the past wee k. He feels better when he is sitting up and worse lying down. An EKG was unremarkable. He has not had an echocardiogram. PAST MEDICAL HISTORY: Longstanding history of CLL as noted above. CURRENT MEDICATIONS: Include venetoclax, posaconazole 300 mg daily, levofloxacin 500 mg daily, César nix 40 mg daily, allopurinol 300 mg daily, acyclovir 40 mg twice daily, Bactrim, and sertraline. ALLERGIES: He has no known drug allergies. FAMILY HISTORY: Noncontributory. SOCIAL HISTORY: He is a nonsmoker, nondrinker. Lives with his . REVIEW OF SYSTEMS: Other than pertinent positives in HPI, a 14-point review of systems is negative. EXAMINATION: VITAL SIGNS: Temperature is 37, blood pressure 105/62, heart rate 72 and regular, oxyg en saturation 88% on room air. GENERAL: He was moderately dyspneic. HEENT: Sclerae were anicteric . Conjunctival markings were diminished. NECK: His jugular venous pressure was elevated to the ang le of the jaw. LUNGS: Notable for dullness at both bases with crackles more superiorly. CARDIAC: Regular rate and rhythm. No murmurs, gallops, or rubs. ABDOMEN: Normoactive bowel sounds. Nontend er. Nondistended. EXTREMITIES: Trace edema. NEUROLOGICAL: He is alert and oriented x3. Strength and sensation were grossly intact. LABORATORY DATA: White count 0.73, hemoglobin 4.8, platelets 4. IMPRESSION: This is a 57-year-old male with a longstanding history of chronic lymphocytic leukemia, now presenting with what appears to be clinically congestive heart failure. His chest x-ray shows bi lateral pleural effusions, and his jugular venous pressure is elevated on exam. This could be multif actorial. He could have high-output cardiac failure due to his chronic anemia. He could be volume o verloaded due to the repeated transfusions. He could also some cardiac dysfunction due to the iron o verload or possibly some other cause. RECOMMENDATIONS: 1. Would empirically diurese the patient. I will also order an echocardiogram and a BNP. 2. We may wish to consult Cardiology, at least in the outpatient setting, for management of this. 3. He needs a platelet and red blood cell transfusion. 4. I would hold off on thoracentesis, as these effusions are most likely due to the CHF and should r esolve with appropriate diuresis and other medical management. 5. He should continue on his prophylactic antibiotics, as he is profoundly immunocompromised and maynor l become more so if he proceeds to allogeneic transplant. Thank you for the consultation. We will continue to follow the patient with you while he is in the ospital. /[id number]/MODL
[2017-10-08] MEDS ORDERED: ONDANSETRON 4 MG/2 ML VIAL IVP PRN (17:44)
[2017-10-08] MEDS ORDERED: ACETAMINOPHEN 325 MG TAB PO PRN (17:44)
--- NOTE | 2017-10-08 18:17 | GHP ---
[f rep st] HISTORY AND PHYSICAL DATE OF ADMISSION: 10/08/2017 CHIEF COMPLAINT: Shortness of breath. HISTORY: The patient is a 57-year-old male with refractory CLL, currently transfusion dependent 2-3 times per week. Currently undergoing transplant evaluation. He now presents to the hospital with sh ortness of breath for 1 week, with severe dyspnea on exertion. There is no lower extremity edema. H e has positive PND and orthopnea and his breathing is much better at night when he sits upright. He has a little bit of a cough of a foamy clear material. PAST MEDICAL HISTORY: 1. CLL refractory transfusion-dependent. 2. Iron overload pending initiation of Exjade. 3. BPH. MEDICATIONS: Please see computer record for full detailed list. ALLERGIES: No known drug allergies. SOCIAL HISTORY: No smoking. No alcohol. He has a girlfriend. REVIEW OF SYSTEMS: Complete review of systems obtained. Review of systems negative regarding consti tutional, HEENT, GI, pulmonary, vascular, , hematology, skin, musculoskeletal, endocrine, psych, ex cept for positives and negatives as in HPI. FAMILY HISTORY: Reviewed, noncontributory to presenting complaint. PHYSICAL EXAMINATION: GENERAL: Well-developed, well-nourished male, in no acute distress. VITAL SI GNS: Temperature 37.0, pulse 72, blood pressure 105/62, saturating 88% on room air. EYES: Normal c onjunctivae. Pupils equal, react light. ENT: Normal ears and nose. Hearing intact. Normal teeth. Oropharynx moist. NECK: Trachea midline. No thyromegaly. CHEST: Normal respiratory effort. VERONIQUE NGS: Bibasilar rales. CARDIOVASCULAR: Regular rhythm. No murmur. No lower extremity edema. Posi tive JVD. ABDOMEN: Soft, nontender. No hepatosplenomegaly. SKIN: Warm, dry, intact, without rash . MUSCULOSKELETAL: No cyanosis or clubbing. Strength 5/5 upper and lower extremities. NEUROLOGIC: Cranial nerves intact. Normal sensation to light touch. PSYCH: Alert, oriented x3. Normal mood and affect. Normal judgment and insight. Normal memory. LABORATORY DATA: White count 0.73, hematocrit 13.9, platelets are 4. Sodium 142, potassium 4.7, chl oride 105, bicarb 23, BUN 23, creatinine 0.6, glucose 138, total bili 2.2, unconjugated 1.17, AST 69, ALT 97. Chest x-ray reviewed, my personal interpretation is bilateral effusions with congestive heart failure . EKG shows normal sinus rhythm with low voltage throughout and PVCs. This case was discussed with Dr. English. He suspects congestive heart failure given findings as di scussed above. This may be related to his iron overload and/or high volume requirement with transfus ions. ASSESSMENT AND PLAN: 1. New onset congestive heart failure. BNP is pending. Will continue IV Lasix and check an echocar diogram. This may be related to his iron overload. 2. Chronic lymphocytic leukemia, transfusion-dependent. Currently undergoing transplant evaluation. He is scheduled this evening for 2 units of packed red blood cells and 1 unit platelet. We will re check CBC in the morning. 3. Neutropenia, without fever. We will continue his prophylactic antibiotics. 4. Increased liver function tests. I suspect this is due to congestion from his congestive heart fa ilure. CODE STATUS: Full. ADMISSION STATUS: Will admit to observation. Reevaluate tomorrow regarding ongoing hospitalization. DVT PROPHYLAXIS: He is low risk given his severe thrombocytopenia. /[id number]/MODL
[2017-10-08] MEDS: SERTRALINE HCL 100 MG TAB PO SCH (20:15)
[2017-10-08] MEDS: QUEtiapine FUMARATE 100 MG TAB PO SCH (20:15)
[2017-10-08] MEDS: PANTOPRAZOLE SODIUM 40 MG TAB PO SCH (20:15)
[2017-10-08] MEDS: ACYCLOVIR 400 MG TAB PO SCH (20:25)
[2017-10-08] MEDS ORDERED: BENZONATATE 100 MG CAP PO PRN (22:26)
[2017-10-08] MEDS: GUAIFENESIN/DM 10 ML UDCUP PO PRN (22:44)
[2017-10-09 06:34] LABS: PLATELET COUNT 11 10^3/uL (150-400)
[2017-10-09] MEDS: FUROSEMIDE 40 MG/4 ML VIAL IVP SCH ×2 (08:24→16:59)
[2017-10-09] MEDS: POSACONAZOLE 100 MG TAB.DR PO SCH (08:28)
[2017-10-09] MEDS: ALLOPURINOL 300 MG TAB PO SCH (08:29)
[2017-10-09] MEDS: VENETOCLAX 100 MG PO SCH (08:29)
[2017-10-09] MEDS: ACYCLOVIR 400 MG TAB PO SCH ×2 (08:29→20:15)
[2017-10-09] MEDS: GUAIFENESIN/DM 10 ML UDCUP PO PRN (09:25)
--- NOTE | 2017-10-09 10:28 | SOAPPROG ---
SOAP Progress Note Assessment/Plan: Assessment: 1. Refractory CLL: he is being considered for an allo PSCT. He is responding to venetoclax with a drop in his counts. He comes in with SOB. He had 2 units yesterday. He will get 2 more today. 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 He is being preped for an allo. Objective: Vital Signs Temp Pulse Resp BP Pulse Ox 36.7 C 78 18 98/60 L 92 10/09/17 08:00 10/09/17 08:00 10/09/17 08:00 10/09/17 08:00 10/09/17 08:00 Laboratory Results 10/09/17 06:15 10/09/17 06:15 10/08/17 10/09/17 10/10/17 05:59 05:59 05:59 Intake Total 470 Output Total 575 1275 Balance -105 -1275 spleen is barely palpable Lungs clear - Time Spent With Patient Time Spent With Patient: 25 min ICD10 Worksheet Patient Problems: Problems Problem Status Onset Chronic lymphoid leukemia, disease Active Febrile neutropenia Active Acquired pancytopenia Active Hypogammaglobulinemia Active Thrombocytopenia Acute Anemia Acute CLL (chronic lymphocytic leukemia) Acute Pleural effusion Acute
[2017-10-09] MEDS ORDERED: FUROSEMIDE 20 MG/2 ML VIAL IVP ONE (10:29)
[2017-10-09] MEDS ORDERED: ACETAMINOPHEN 325 MG TAB PO ONE (10:29)
--- NOTE | 2017-10-09 12:04 | ECHO ---
[email or web address] [address] [address] Main: [phone] Fax: Transthoracic Echocardiogram Name: RIGO VOGT MR#: [id number] Study Date: 10/08/2017 Study Time: 04:18 PM Date of : 1960 Age: 57 year(s) Height: 188 cm (74 in.) Weight: 89.36 kg (197 lb.) BSA: 2.16 m2 Gender: Male Examination: Echo Indication: Cardiac: dyspnea, CHF, CLL. iron overloaded Image Quality: Contrast: Requested by: Mehrdad English BP: 116 mmHg/80 mmHg Heart Rate: Rhythm: Indication: Cardiac: dyspnea, CHF, CLL. iron overloaded Procedure Staff Communication Consultant: Melba Sharma RDCS Reading Physician: Paul Cazares MD Requesting Provider: Conclusions: Technically difficult study due to poor acoustic windows. Normal left ventricular size and systolic function. LVEF estimated at 65-70%. Diastolic function not adequately assessed. Normal right-sided chamber dimensions. Mild left atrial enlargement. Grossly normal-appearing valvular structures. Mild tricuspid regurgitation with an estimated RVSP of 44 mmHg. Large left pleural effusion. Trivial pericardial effusion. Measurements: Chambers Valvular Assessment AV/MV Valvular Assessment TV/PV Normal Normal Normal Name Value Range Name Value Range Name Value Range Ao Lisa (MM): 3.4 cm (2.2 cm-3.7 AV meanP mmHg ( - ) TR Vmax: 3.14 mm/s ( - ) cm) MV E Vmax: 0.97 m/s ( - ) TR PGmax: 39 mmHg ( - ) IVSd (2D): 1.0 cm (0.6 cm-1.1 MV A Vmax: 0.70 m/s ( - ) syst. PAP: 44 mmHg ( - ) cm) MV E/A: 1.39 ( - ) LVDd (2D): 6.0 cm (4.2 cm-5.9 cm) LVDs (2D): 3.0 cm (2.1 cm-4 cm) LVPWd (2D): 1.0 cm (0.6 cm-1 cm) EF Range: 65-70 % Continued Measurements: Chambers Valvular Assessment AV/MV Valvular Assessment TV/PV Name Value Name Value Name Value LADs: 5.0 cm MV E/E' Septal: 11.30 CVP (est.): 5 mmHg MV E/E' Lateral: 10.10 Patient: RIGO VOGT Study Date: 10/08/2017 Page 1 of 2 04:18 PM Findings: Left Ventricle: Normal size left ventricle. Normal global systolic LV function. The ejection fraction is estimated to be 65-70 %. Right Ventricle: Normal size right ventricle. Mitral Valve: The mitral valve is normal in appearance. Aortic Valve: The aortic valve is normal in appearance. Tricuspid Valve: The tricuspid valve appears normal. Mild tricuspid regurgitation is present. The pulmonary artery pressure is mildly increased. RVSP is 44mmHG. . Pulmonic Valve: The pulmonic valve is normal in appearance. Pericardium: Trivial anterior pericardial effusion. Left side pleural effusion. Exam Comments: Technically difficult study due to the large left pleural effusion.. (No Signature Object) Patient: RIGO VOGT Study Date: 10/08/2017 Page 2 of 2 04:18 PM [id number]
--- NOTE | 2017-10-09 12:54 | HOSPPROG ---
Hospitalist Progress Note Assessment/Plan: 57-year-old man with Transfusion dependent CLL is admitted with increasing dyspnea. Chest x-ray shows large bilateral pleural effusions he is also pancytopenic. # dyspnea: Likely multifactorial due to his profound anemia as well as large pleural effusions. Echocardiogram done shows normal ejection fraction and fairly normal cardiac function overall. With a normal BNP echo I am reluctant to say that his pleural effusions are all from CHF * Continue IV diuresis * Consider thoracentesis to help with symptoms if no improvement with diuresis * Normal cardiac function and no evidence of thickened myocardium from iron overload on echo * Transfuse # pancytopenia, transfuse as indicated. [facility] may need to reschedule if he decides to stay overnight for this thoracentesis # large bilateral pleural effusions, symptomatic. Discussed in detail with Dr. Ruano. Will try IV diuresis but if this is unsuccessful might benefit symptomatically from a thoracentesis we can also send it for cytology to see if these are malignant effusions as a cause. Unfortunately his platelets are very low and would require transfusion of platelets prior to thoracentesis. * Recheck chest x-ray in a.m. After diuresis * Order her platelet transfusion and thoracentesis if still elevated * Will need to discuss with patient as he may prefer for to do this as outpatient # iron overload patient to start chelating agent as outpatient # chronic CLL followed by Dr. Carmen Gomez. He is hoping to eventually get a transplant in the future currently he is having his labs checked frequently and getting transfusions frequently Subjective: Patient still quite dyspneic at rest and with exertion Objective: Vital Signs Temp Pulse Resp BP Pulse Ox 36.7 C 78 18 98/60 L 92 10/09/17 08:00 10/09/17 08:00 10/09/17 08:00 10/09/17 08:00 10/09/17 08:00 Laboratory Results 10/09/17 06:15 10/09/17 06:15 10/08/17 10/09/17 10/10/17 05:59 05:59 05:59 Intake Total 470 Output Total 575 1275 Balance -105 -1275 - Physical Exam Constitutional: chronically ill appearing, uncomfortable Eyes: PERRL, anicteric sclera Ears, Nose, Mouth, Throat: moist mucous membranes Cardiovascular: regular rate and rhythym Respiratory: reduced air movement (bases), respiratory distress Gastrointestinal: No tenderness Genitourinary: no bladder fullness Skin: No normal color (pale) Musculoskeletal: generalized weakness Neurologic: AAOx3 Psychiatric: interacting appropriately ICD10 Worksheet Patient Problems: Problems Problem Status Onset Chronic lymphoid leukemia, disease Active Febrile neutropenia Active Acquired pancytopenia Active Hypogammaglobulinemia Active Thrombocytopenia Acute Anemia Acute CLL (chronic lymphocytic leukemia) Acute Pleural effusion Acute
--- NOTE | 2017-10-09 13:46 | ASMTCMCOM ---
CM Note CM Note Notes: 10/09/2017 Case Management Note Discussed pt during rounds, but did not meet d/t neutropenia. Pt admitted for decreased HCT, PLTS, CP with history of CLL. There are no case management d/c needs identified d/t pt age, family support and medical treatment of CLL. Per pt has appointment at the [facility] for chelation therapy tomorrow. There are no PT or OT evals ordered at this time. Case Management d/c poc: home independent resuming follow up by MD's outpatient at the [facility]. Case Management available if needs change. Date Signed: 10/09/2017 01:46 PM Electronically Signed By:Clau Guevara RN
[2017-10-09 17:38] LABS: INR 1.1 (0.83-1.16); PROTIME(PATIENT) 14.4 SEC (12.0-15.0)
[2017-10-09] MEDS: QUEtiapine FUMARATE 100 MG TAB PO SCH (20:15)
[2017-10-09] MEDS: SERTRALINE HCL 100 MG TAB PO SCH (20:15)
[2017-10-09] MEDS: PANTOPRAZOLE SODIUM 40 MG TAB PO SCH (20:15)
[2017-10-09] MEDS ORDERED: BIOTENE DRY MOUTH MOUTHWASH 237 ML BTL MM PRN (23:22)
[2017-10-10] MEDS: GUAIFENESIN/DM 10 ML UDCUP PO PRN ×2 (02:07→08:40)
[2017-10-10 06:58] LABS: PLATELET COUNT 7 10^3/uL (150-400)
[2017-10-10] MEDS ORDERED: SULFAMETHOX/TMP 800/160 MG 1 TAB PO SCH (08:00)
[2017-10-10] MEDS: FUROSEMIDE 40 MG/4 ML VIAL IVP SCH ×2 (08:13→15:34)
[2017-10-10] MEDS: ALLOPURINOL 300 MG TAB PO SCH (08:13)
[2017-10-10] MEDS: POSACONAZOLE 100 MG TAB.DR PO SCH (08:14)
[2017-10-10] MEDS: ACYCLOVIR 400 MG TAB PO SCH ×2 (08:14→19:59)
[2017-10-10] MEDS: VENETOCLAX 100 MG PO SCH (08:15)
--- NOTE | 2017-10-10 10:01 | SOAPPROG ---
SOAP Progress Note Assessment/Plan: Assessment: 1. Refractory CLL: he is being considered for a MUD PSCT. He is responding to venetoclax with a drop in his counts, but he has persistently low counts. He comes in with SOB. I will order 2 units of platelets before the tap today. We can send that for flow, infection, and chemistry, and cytology. 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 3. Pancytopenia: the 08/16/2017 BM was 85% cellular with 90% CLL. No cytogenetics were done. Previously he was 13q del and 11q -. I see a consumptive process going on with the freq of TXNs. The LDH is not elevated. I doubt there is HLH but it's difficult to ascertain with the hemosiderosis. I will order a soluble CD 25. I will check for PNH. 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 4. Jose pleural effusions: neg for CHF Plan: Tap RIGHT lung for diagnosis and to relieve SOB 10/09/17 10:25 10/10/17 09:55 Subjective: He is in his usual state of health. He is mildly SOB. He remains afebrile Objective: Vital Signs Temp Pulse Resp BP Pulse Ox 36.6 C 83 16 108/64 94 10/10/17 08:00 10/10/17 08:00 10/10/17 08:00 10/10/17 08:00 10/10/17 08:00 Laboratory Results 10/10/17 06:30 10/10/17 06:30 10/09/17 10/10/17 10/11/17 05:59 05:59 05:59 Intake Total 470 2460 Output Total 575 2350 Balance -105 110 PT 14.4 SEC (12.0-15.0) 10/09/17 17:10 INR 1.10 (0.83-1.16) 10/09/17 17:10 Minimal Lymphadenopathy Lungs: jose dullness and dec breath sounds 2/3 up R>L CVS reg Abd: minimal splenomegaly - Time Spent With Patient Time Spent With Patient: 45 min and d/w Dr. Van ICD10 Worksheet Patient Problems: Problems Problem Status Onset Chronic lymphoid leukemia, disease Active Febrile neutropenia Active Acquired pancytopenia Active Hypogammaglobulinemia Active Thrombocytopenia Acute Anemia Acute CLL (chronic lymphocytic leukemia) Acute Pleural effusion Acute
--- NOTE | 2017-10-10 12:04 | ASMTCMCOM ---
CM Note CM Note Notes: 10/10/2017 Case Management Note Discussed pt during rounds this morning. Per RN [facility] at 8:00 am. Case Management to arrange ambulance transport if pt still at [facility]. There are no PT or OT evals ordered at this time. Case Management d/c poc: remains independent with follow up as directed. Case Management to follow. Date Signed: 10/10/2017 12:03 PM Electronically Signed By:Clau Guevara RN
[2017-10-10 12:43] LABS: PLATELET COUNT 43 10^3/uL (150-400)
[2017-10-10 12:49] LABS: INR 1.09 (0.83-1.16); PROTIME(PATIENT) 14.3 SEC (12.0-15.0)
[2017-10-10 13:20] LABS: PLATELET COUNT 33 10^3/uL (150-400)
[2017-10-10] MEDS ORDERED: LIDOCAINE 1% 300 MG/30 ML SDV ONE (15:05)
--- NOTE | 2017-10-10 16:03 | HOSPPROG ---
Hospitalist Progress Note Assessment/Plan: 57-year-old man with Transfusion dependent CLL is admitted with increasing dyspnea. Chest x-ray shows large bilateral pleural effusions he is also pancytopenic. # dyspnea- multifactorial due to his profound anemia as well as large pleural effusions. Echocardiogram (reviewed) normal ejection fraction CXR (personally reviewed and interpreted) large bilateral pleural effusions Patient reports mild response to IV diuretics - or oxygen saturations 93% on 3L -plan for platelet transfusion and right-sided thoracentesis today -Continue IV diuresis - if successful plan for left-sided thoracentesis after platelet transfusion tomorrow # pancytopenia, transfuse as indicated. Scheduled for a antifungal [facility] at the [facility] will need to reschedule # large bilateral pleural effusions, symptomatic. Discussed in detail with Dr. Ruano. -thoracentesis and transfusions as outlined above # iron overload patient to start chelating agent as outpatient # chronic CLL followed by Dr. Carmen Gomez. He is hoping to eventually get a transplant in the future currently he is having his labs checked frequently and getting transfusions frequently # prophylaxis-contraindicated is patient has profound thrombocytopenia # diet- neutropenic diet # disposition-potentially tomorrow after thoracentesis depending on patient's stability post procedure today I have discussed the case with Dr. Ruano we will proceed with careful platelet transfusion in thoracentesis well patient remains inpatient for monitoring Subjective: Fatigued Objective: Vital Signs Temp Pulse Resp BP Pulse Ox 36.7 C 79 14 118/76 93 10/10/17 15:02 10/10/17 15:02 10/10/17 15:02 10/10/17 15:02 10/10/17 15:02 Laboratory Results 10/10/17 13:05 10/10/17 06:30 10/09/17 10/10/17 10/11/17 05:59 05:59 05:59 Intake Total 470 2460 Output Total 575 2350 700 Balance -105 110 -700 PT 14.3 SEC (12.0-15.0) 10/10/17 12:20 INR 1.09 (0.83-1.16) 10/10/17 12:20 - Physical Exam Constitutional: chronically ill appearing Eyes: anicteric sclera Ears, Nose, Mouth, Throat: dry mucous membranes Cardiovascular: regular rate and rhythym Respiratory: no respiratory distress Gastrointestinal: normoactive bowel sounds Genitourinary: no bladder fullness Skin: warm Musculoskeletal: No asymmetric calves Neurologic: AAOx3 Psychiatric: interacting appropriately Lymph, Heme, Immunologic: no cervical LAD ICD10 Worksheet Patient Problems: Problems Problem Status Onset Anemia Acute CLL (chronic lymphocytic leukemia) Acute Pleural effusion Acute Thrombocytopenia Acute Acquired pancytopenia Active Chronic lymphoid leukemia, disease Active Febrile neutropenia Active Hypogammaglobulinemia Active
[2017-10-10] MEDS: PANTOPRAZOLE SODIUM 40 MG TAB PO SCH (19:59)
[2017-10-10] MEDS: QUEtiapine FUMARATE 100 MG TAB PO SCH (19:59)
[2017-10-10] MEDS: SERTRALINE HCL 100 MG TAB PO SCH (19:59)
[2017-10-10] MEDS: guaiFENesin/CODEINE PHOS 10 ML UDCUP PO PRN (21:31)
[2017-10-11] MEDS: ALLOPURINOL 300 MG TAB PO SCH (08:22)
[2017-10-11] MEDS: ACYCLOVIR 400 MG TAB PO SCH (08:23)
[2017-10-11] MEDS: POSACONAZOLE 100 MG TAB.DR PO SCH (08:23)
[2017-10-11] MEDS: VENETOCLAX 100 MG PO SCH (08:24)
[2017-10-11] MEDS: FUROSEMIDE 40 MG/4 ML VIAL IVP SCH (08:25)
--- NOTE | 2017-10-11 11:17 | PDMN ---
Medical Necessity Medical necessity: Patient meets inpatient criteria per physician note and MCG M -540 Pleural Effusion (patient with transfusion-dependent CLL admitted with increasing dyspnea; CXR shows bilateral large pleural effusions; pancytopenic; LOS > 2 midnights for mult transfusions of platelets and PRBC's, IV diuresis, IR -guided L thoracentesis 1400ml fluid.)
--- NOTE | 2017-10-11 11:58 | SOAPPROG ---
SOAP Progress Note Assessment/Plan: Assessment: 1. Refractory CLL: He is being considered for a MUD PSCT. He is responding to venetoclax with a drop in his counts, but he has persistently low counts. He comes in with SOB. 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 3. Pancytopenia: the 08/16/2017 BM was 85% cellular with 90% CLL. No cytogenetics were done. Previously he was 13q del and 11q -. I see a consumptive process going on with the freq of TXNs. The LDH is not elevated. I doubt there is HLH but it's difficult to ascertain with the hemosiderosis. I will order a soluble CD 25. I will check for PNH. 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 4. Jose pleural effusions: Fluid appears to be an exudate on the LEFT. Gram stain is negative. Cytology and flow needs to be followed up. Plan: Tap RIGHT lung for diagnosis and to relieve SOB today. HE can go home if his Hgb is >6.0 to follow up tomorrow in the clinic. 10/09/17 10:25 10/10/17 09:55 10/11/17 11:58 Subjective: Anival is breathing easier. 1400 ml out of the Left pleural cavity. The right is being done today. Objective: Vital Signs Temp Pulse Resp BP Pulse Ox 36.6 C 76 18 110/58 L 94 10/11/17 08:00 10/11/17 08:00 10/11/17 08:00 10/11/17 08:00 10/11/17 08:00 PT 14.3 SEC (12.0-15.0) 10/10/17 12:20 INR 1.09 (0.83-1.16) 10/10/17 12:20 Dullness dec on LEFT. [place] on the RIGHT is up 4 inches. - Time Spent With Patient Time Spent With Patient: 20 min ICD10 Worksheet Patient Problems: Problems Problem Status Onset Chronic lymphoid leukemia, disease Active Febrile neutropenia Active Acquired pancytopenia Active Hypogammaglobulinemia Active Thrombocytopenia Acute Anemia Acute CLL (chronic lymphocytic leukemia) Acute Pleural effusion Acute
[2017-10-11 12:05] LABS: PLATELET COUNT 44 10^3/uL (150-400)
[2017-10-11] MEDS: guaiFENesin/CODEINE PHOS 10 ML UDCUP PO PRN (12:14)
[2017-10-11 12:16] LABS: INR 1.08 (0.83-1.16); PROTIME(PATIENT) 14.2 SEC (12.0-15.0)
[2017-10-11 12:27] VITALS: RESP 16
[2017-10-11 12:32] VITALS: TEMP 98.7; O2SAT 91
[2017-10-11] MEDS ORDERED: LIDOCAINE 1% 300 MG/30 ML SDV ONE (12:38)
--- NOTE | 2017-10-11 13:47 | PDRADPN ---
Radiology Procedure Note Date of Procedure: 10/11/17 Radiologist: Paul Morales Anesthesia: Local (Specify) Pre-op Diagnosis: large right effusion Post-op Diagnosis: same Indication: therapeutic Procedure: thoracentesis Finding(s): large serosanguinous right effusion. 1.5L aspirated. moderate residual fluid. Inf/Abcess present in the surg proc area at time of surgery?: No Depth: Deep Incisional (Fascial) EBL: Minimal Complications: none Specimen(s): none
[2017-10-11] MEDS ORDERED: ONDANSETRON 4 MG/2 ML VIAL IVP PRN (14:23)
--- NOTE | 2017-10-11 14:23 | PDRADPN ---
Radiology Procedure Note Date of Procedure: 10/11/17 Radiologist: Paul Morales Anesthesia: IV Sedation Pre-op Diagnosis: post op pelvic collection Post-op Diagnosis: same Indication: infection control Procedure: CT guided right transgluteal drain placement Finding(s): thin serosanguinous fluid aspirated. 10F drain placed. good position. Inf/Abcess present in the surg proc area at time of surgery?: Yes Depth: Organ Space EBL: Minimal Complications: none Specimen(s): 5mL fluid submitted for culture
[2017-10-11 14:42] VITALS: BP 110/60; PULSE 88
--- NOTE | 2017-10-11 17:27 | GDS ---
[f rep st] DISCHARGE SUMMARY DISCHARGE DIAGNOSES: Include: 1. Large bilateral pleural effusions. 2. Severe pancytopenia. 3. Iron overload requiring chelation therapy. 4. Chronic lymphocytic leukemia. HISTORY OF PRESENT ILLNESS: A 57-year-old male with transfusion dependency, admitted with increasing dyspnea. For details of patient's initial presentation, please see the History and Physical dated 0 10/08/2017. CONSULTATIVE SERVICES: Include: 1. Oncology. 2. Interventional Radiology. PROCEDURES: On 10/10/2017 and 10/11/2017, patient underwent consecutive thoracenteses, 1 on each belgica e of his chest, with large volume fluid removal. HOSPITAL COURSE: 1. Dyspnea, thought likely multifactorial. Patient was treated with Lasix intravenous during his ho spital stay as well as large volume thoracenteses after platelet transfusion. Patient is on room air the morning of disposition and will be continuing to follow in the outpatient setting with Oncology. Cytology ordered on the pleural fluid is pending at the time of the patient's disposition. 2. Severe pancytopenia. Patient has markedly cellular marrow, is actively being managed in the outp atient setting by Oncology. He did receive both blood and platelet transfusions during this stay. 3. Iron overload. Patient receives upwards of 6 transfusions a week. Ferritin is greater than 4000 . He will be receiving chelation therapy the day after disposition. DISCHARGE MEDICATIONS: Please reference the med rec printed on 10/11/2017. FOLLOWUP APPOINTMENTS: Include with Oncology tomorrow for chelation therapy and monitoring. PENDING STUDIES: Include pleural fluid analysis and cytology. FOLLOWUP: Will be followed in the outpatient setting by Oncology. I spent greater than 30 minutes in the planning and coordination of this discharge. /[id number]/MODL
== END 2017-10-11 15:15 | disposition home or self-care (01) | DRG 187 ==
LOC: INTOOBSV 11:15 → F2W 12:56 → OBSVTOIN 10-11 10:35
PROVIDERS: ADMIT Internal Medicine; ATTEND Internal Medicine
PROC: 30233N1 Transfusion of Nonautologous Red Blood Cells into Peripheral Vein, Percutaneous Approach (ICD-10-PCS; 2017-10-08)
PROC: 30233R1 Transfusion of Nonautologous Platelets into Peripheral Vein, Percutaneous Approach (ICD-10-PCS; 2017-10-08)
PROC: 0W9B3ZZ Drainage of Left Pleural Cavity, Percutaneous Approach (ICD-10-PCS; principal; 2017-10-10)
PROC: 0W993ZZ Drainage of Right Pleural Cavity, Percutaneous Approach (ICD-10-PCS; 2017-10-11)
DX: J90 Pleural effusion, not elsewhere classified (principal); D61.818 Other pancytopenia; C91.10 Chronic lymphocytic leukemia of B-cell type not having achieved remission; E83.111 Hemochromatosis due to repeated red blood cell transfusions; N40.0 Benign prostatic hyperplasia without lower urinary tract symptoms
CPT/HCPCS: 85060-90; 88184-90; 88185-91; 99001-90; G0378; J1940; P9016; P9037; P9040

== ENCOUNTER 2017-10-13 09:42 | Outpatient (CLI) | payer OTHER ==
[2017-10-13] MEDS ORDERED: ACETAMINOPHEN 325 MG TAB PO ONE (10:30)
[2017-10-13] MEDS ORDERED: FUROSEMIDE 20 MG/2 ML VIAL IVP ONE (10:30)
== END 2017-10-13 15:08 | disposition home or self-care (01) ==
LOC: FOBOP 09:42
PROVIDERS: ATTEND Internal Medicine Hematology & Oncology
PROC: 30233N1 Transfusion of Nonautologous Red Blood Cells into Peripheral Vein, Percutaneous Approach (ICD-10-PCS; principal; 2017-10-13)
DX: C91.10 Chronic lymphocytic leukemia of B-cell type not having achieved remission (principal); D64.81 Anemia due to antineoplastic chemotherapy
CPT/HCPCS: 36430; P9016; P9040; J1940

== ENCOUNTER 2017-10-16 11:00 | Outpatient (CLI) | payer OTHER | END 2017-10-16 17:00 | disposition home or self-care (01) | LOC: FOBOP 11:00 | PROVIDERS: ATTEND Internal Medicine Hematology & Oncology | PROC: 30233N1 Transfusion of Nonautologous Red Blood Cells into Peripheral Vein, Percutaneous Approach (ICD-10-PCS; principal; 2017-10-16) | PROC: 30233R1 Transfusion of Nonautologous Platelets into Peripheral Vein, Percutaneous Approach (ICD-10-PCS; principal; 2017-10-16) | DX: C91.10 Chronic lymphocytic leukemia of B-cell type not having achieved remission (principal); D70.2 Other drug-induced agranulocytosis; T45.1X5A Adverse effect of antineoplastic and immunosuppressive drugs, initial encounter | CPT/HCPCS: P9016; P9037; P9040 ==

== ENCOUNTER 2017-10-18 09:09 | Outpatient (CLI) | payer OTHER ==
[2017-10-18] MEDS ORDERED: ACETAMINOPHEN 325 MG TAB PO ONE (10:15)
[2017-10-18] MEDS ORDERED: FUROSEMIDE 20 MG/2 ML VIAL IVP ONE (10:15)
== END 2017-10-18 14:30 | disposition home or self-care (01) ==
LOC: FOBOP 09:09
PROVIDERS: ATTEND Internal Medicine Hematology & Oncology
PROC: 30233N1 Transfusion of Nonautologous Red Blood Cells into Peripheral Vein, Percutaneous Approach (ICD-10-PCS; principal; 2017-10-18)
PROC: 30233R1 Transfusion of Nonautologous Platelets into Peripheral Vein, Percutaneous Approach (ICD-10-PCS; principal; 2017-10-18)
DX: C95.90 Leukemia, unspecified not having achieved remission (principal)
CPT/HCPCS: 36430; P9016; P9037; P9040; J1940

== ENCOUNTER → 2017-10-19 | Outpatient (CLI) | payer OTHER | LOC: FIMAGING 11:11 | PROVIDERS: ATTEND Internal Medicine Hematology & Oncology | DX: J90 Pleural effusion, not elsewhere classified (principal); C91.10 Chronic lymphocytic leukemia of B-cell type not having achieved remission ==

== ENCOUNTER 2017-10-21 11:17 | Outpatient (CLI) | payer OTHER | END 2017-10-21 12:45 | disposition home or self-care (01) | LOC: FOBOP 11:17 | PROVIDERS: ATTEND Internal Medicine Hematology & Oncology | PROC: 30233R1 Transfusion of Nonautologous Platelets into Peripheral Vein, Percutaneous Approach (ICD-10-PCS; principal; 2017-10-21) | DX: C91.10 Chronic lymphocytic leukemia of B-cell type not having achieved remission (principal) | CPT/HCPCS: 36430; P9037 ==

== ENCOUNTER 2017-10-23 12:04 | Outpatient (CLI) | payer OTHER ==
[2017-10-23] MEDS ORDERED: FUROSEMIDE 20 MG/2 ML VIAL ONE (14:36)
[2017-10-23] MEDS ORDERED: FUROSEMIDE 20 MG/2 ML VIAL IVP ONE (15:09)
== END 2017-10-23 16:20 | disposition home or self-care (01) ==
LOC: FOBOP 12:04
PROVIDERS: ATTEND Internal Medicine Hematology & Oncology
PROC: 30243N1 Transfusion of Nonautologous Red Blood Cells into Central Vein, Percutaneous Approach (ICD-10-PCS; principal; 2017-10-23)
DX: C91.10 Chronic lymphocytic leukemia of B-cell type not having achieved remission (principal); D70.9 Neutropenia, unspecified; D64.81 Anemia due to antineoplastic chemotherapy; E83.111 Hemochromatosis due to repeated red blood cell transfusions; D69.6 Thrombocytopenia, unspecified; D61.818 Other pancytopenia; D80.1 Nonfamilial hypogammaglobulinemia; E78.00 Pure hypercholesterolemia, unspecified
CPT/HCPCS: 36430; P9016; P9040; J1940

== ENCOUNTER 2017-10-25 12:25 | Outpatient (CLI) | payer OTHER | END 2017-10-25 17:15 | disposition home or self-care (01) | LOC: FOBOP 12:25 | PROVIDERS: ATTEND Internal Medicine Hematology & Oncology | PROC: 30233R1 Transfusion of Nonautologous Platelets into Peripheral Vein, Percutaneous Approach (ICD-10-PCS; principal; 2017-10-25) | PROC: 30233N1 Transfusion of Nonautologous Red Blood Cells into Peripheral Vein, Percutaneous Approach (ICD-10-PCS; principal; 2017-10-25) | DX: C91.10 Chronic lymphocytic leukemia of B-cell type not having achieved remission (principal) | CPT/HCPCS: 36430; P9016; P9037; P9040 ==

== ENCOUNTER 2017-10-27 10:21 | Outpatient (CLI) | payer OTHER | END 2017-10-27 14:25 | disposition home or self-care (01) | LOC: FOBOP 10:21 | PROVIDERS: ATTEND Internal Medicine Hematology & Oncology | PROC: 30233N1 Transfusion of Nonautologous Red Blood Cells into Peripheral Vein, Percutaneous Approach (ICD-10-PCS; principal; 2017-10-27) | DX: C91.10 Chronic lymphocytic leukemia of B-cell type not having achieved remission (principal) | CPT/HCPCS: 36430; P9016; P9040 ==

== ENCOUNTER 2017-10-29 14:36 | Outpatient (CLI) | payer OTHER | END 2017-10-29 18:06 | disposition home or self-care (01) | LOC: FOBOP 14:36 | PROVIDERS: ATTEND Internal Medicine Hematology & Oncology | PROC: 30233R1 Transfusion of Nonautologous Platelets into Peripheral Vein, Percutaneous Approach (ICD-10-PCS; principal; 2017-10-29) | DX: C91.10 Chronic lymphocytic leukemia of B-cell type not having achieved remission (principal) | CPT/HCPCS: 36430; P9037; P9073 ==

== ENCOUNTER 2017-10-30 10:54 | Outpatient (CLI) | payer OTHER ==
[2017-10-30] MEDS ORDERED: ACETAMINOPHEN 325 MG TAB PO ONE (13:45)
[2017-10-30] MEDS ORDERED: diphenhydrAMINE 25 MG CAP PO ONE (13:45)
== END 2017-10-30 16:00 | disposition home or self-care (01) ==
LOC: FOBOP 10:54
PROVIDERS: ATTEND Internal Medicine Hematology & Oncology
PROC: 30233R1 Transfusion of Nonautologous Platelets into Peripheral Vein, Percutaneous Approach (ICD-10-PCS; principal; 2017-10-30)
DX: C91.10 Chronic lymphocytic leukemia of B-cell type not having achieved remission (principal)
CPT/HCPCS: 36430; P9016; P9037; P9040; 86157-90; 86860-90; 86870-90; 86922-90

== ENCOUNTER 2017-11-01 16:57 | Outpatient (CLI) | payer OTHER | END 2017-11-01 21:05 | disposition home or self-care (01) | LOC: FOBOP 16:57 | PROVIDERS: ATTEND Internal Medicine Hematology & Oncology | PROC: 30233N1 Transfusion of Nonautologous Red Blood Cells into Peripheral Vein, Percutaneous Approach (ICD-10-PCS; principal; 2017-11-01) | DX: C91.10 Chronic lymphocytic leukemia of B-cell type not having achieved remission (principal) | CPT/HCPCS: 36430; P9016; P9037; P9040 ==

== ENCOUNTER 2017-11-03 11:01 | Outpatient (CLI) | payer OTHER | END 2017-11-03 15:45 | disposition home or self-care (01) | LOC: FOBOP 11:01 | PROVIDERS: ATTEND Internal Medicine Hematology & Oncology | PROC: 30233P1 Transfusion of Nonautologous Frozen Red Cells into Peripheral Vein, Percutaneous Approach (ICD-10-PCS; principal; 2017-11-03) | DX: C91.10 Chronic lymphocytic leukemia of B-cell type not having achieved remission (principal) | CPT/HCPCS: 36430; P9016; P9040 ==

== ENCOUNTER → 2017-11-07 | Outpatient (CLI) | payer OTHER | LOC: F1NOP 18:02 | PROVIDERS: ATTEND Internal Medicine Hematology & Oncology | PROC: 30233N1 Transfusion of Nonautologous Red Blood Cells into Peripheral Vein, Percutaneous Approach (ICD-10-PCS; principal; 2017-11-07) | DX: C91.10 Chronic lymphocytic leukemia of B-cell type not having achieved remission (principal); D58.9 Hereditary hemolytic anemia, unspecified; D70.9 Neutropenia, unspecified; D63.0 Anemia in neoplastic disease; D69.6 Thrombocytopenia, unspecified; E83.111 Hemochromatosis due to repeated red blood cell transfusions; D80.1 Nonfamilial hypogammaglobulinemia; D61.818 Other pancytopenia; E78.00 Pure hypercholesterolemia, unspecified | CPT/HCPCS: 36430; P9016; P9040 ==

== ENCOUNTER 2017-11-08 13:49 | Outpatient (CLI) | payer OTHER | END 2017-11-08 19:00 | disposition home or self-care (01) | LOC: FOBOP 13:49 | PROVIDERS: ATTEND Internal Medicine Hematology & Oncology | PROC: 30233R1 Transfusion of Nonautologous Platelets into Peripheral Vein, Percutaneous Approach (ICD-10-PCS; principal; 2017-11-08) | PROC: 30233N1 Transfusion of Nonautologous Red Blood Cells into Peripheral Vein, Percutaneous Approach (ICD-10-PCS; principal; 2017-11-08) | DX: C91.10 Chronic lymphocytic leukemia of B-cell type not having achieved remission (principal) | CPT/HCPCS: 36430; P9016; P9037; P9040 ==

== ENCOUNTER 2017-11-10 09:53 | Outpatient (CLI) | payer OTHER | END 2017-11-10 15:50 | disposition home or self-care (01) | LOC: FOBOP 09:53 | PROVIDERS: ATTEND Internal Medicine Hematology & Oncology | DX: C91.10 Chronic lymphocytic leukemia of B-cell type not having achieved remission (principal) | CPT/HCPCS: 36430; P9016; P9040; P9073 ==

== ENCOUNTER → 2017-11-13 | Outpatient (CLI) | payer OTHER | LOC: FOBOP 13:25 | PROVIDERS: ATTEND Internal Medicine Hematology & Oncology | PROC: 30233R1 Transfusion of Nonautologous Platelets into Peripheral Vein, Percutaneous Approach (ICD-10-PCS; principal; 2017-11-13) | PROC: 30233N1 Transfusion of Nonautologous Red Blood Cells into Peripheral Vein, Percutaneous Approach (ICD-10-PCS; principal; 2017-11-13) | DX: C91.10 Chronic lymphocytic leukemia of B-cell type not having achieved remission (principal) | CPT/HCPCS: 36430; P9016; P9037; P9040 ==

== ENCOUNTER 2017-11-17 09:33 | Outpatient (CLI) | payer OTHER ==
[2017-11-17] MEDS ORDERED: ACETAMINOPHEN 325 MG TAB PO ONE (10:15)
== END 2017-11-17 14:45 | disposition home or self-care (01) ==
LOC: FOBOP 09:33
PROVIDERS: ATTEND Internal Medicine Hematology & Oncology
PROC: 30233N1 Transfusion of Nonautologous Red Blood Cells into Peripheral Vein, Percutaneous Approach (ICD-10-PCS; principal; 2017-11-17)
PROC: 30233R1 Transfusion of Nonautologous Platelets into Peripheral Vein, Percutaneous Approach (ICD-10-PCS; principal; 2017-11-17)
DX: C91.10 Chronic lymphocytic leukemia of B-cell type not having achieved remission (principal); D58.9 Hereditary hemolytic anemia, unspecified; D70.9 Neutropenia, unspecified; D64.81 Anemia due to antineoplastic chemotherapy; D69.6 Thrombocytopenia, unspecified; D61.818 Other pancytopenia; E83.111 Hemochromatosis due to repeated red blood cell transfusions; D80.1 Nonfamilial hypogammaglobulinemia; E78.00 Pure hypercholesterolemia, unspecified
CPT/HCPCS: 36430; P9016; P9040; P9073

== ENCOUNTER 2017-11-19 17:05 | Outpatient (CLI) | payer OTHER | END 2017-11-19 22:30 | disposition home or self-care (01) | LOC: FOBOP 17:05 | PROVIDERS: ATTEND Internal Medicine Hematology & Oncology | DX: C91.10 Chronic lymphocytic leukemia of B-cell type not having achieved remission (principal) | CPT/HCPCS: 36430; P9016; P9037; P9040 ==

== ENCOUNTER 2017-11-21 15:07 | Outpatient (CLI) | payer OTHER | END 2017-11-21 20:15 | disposition home or self-care (01) | LOC: FOBOP 15:07 | PROVIDERS: ATTEND Internal Medicine Hematology & Oncology | PROC: 30233R1 Transfusion of Nonautologous Platelets into Peripheral Vein, Percutaneous Approach (ICD-10-PCS; principal; 2017-11-21) | PROC: 30233N1 Transfusion of Nonautologous Red Blood Cells into Peripheral Vein, Percutaneous Approach (ICD-10-PCS; principal; 2017-11-21) | DX: C91.10 Chronic lymphocytic leukemia of B-cell type not having achieved remission (principal) | CPT/HCPCS: 36430; P9016; P9037; P9040; 99001-90 ==

== ENCOUNTER → 2017-11-23 | Outpatient (CLI) | payer OTHER | LOC: FOBOP 16:50 | PROVIDERS: ATTEND Internal Medicine Hematology & Oncology | PROC: 30233N1 Transfusion of Nonautologous Red Blood Cells into Peripheral Vein, Percutaneous Approach (ICD-10-PCS; principal; 2017-11-23) | PROC: 30233R1 Transfusion of Nonautologous Platelets into Peripheral Vein, Percutaneous Approach (ICD-10-PCS; principal; 2017-11-23) | DX: C91.10 Chronic lymphocytic leukemia of B-cell type not having achieved remission (principal) | CPT/HCPCS: 36430; P9016; P9037; P9040; 99001-90 ==